=== PATIENT | female | born 1950 | race Caucasian/White ===

== ENCOUNTER → 2017-06-04 | Outpatient (CLI) | payer OTHER, MEDICARE ==
[~2017-06-04] MED LIST: ELESTAT; GLIP2.5T6; OSTEO BI FLEX; SOMA250T; TAMO20TA; THERGRAN; VENL75TA2; VIT B12; VITA100C7; VITA100T; VITAMIN D50000 UNT
== END ==
LOC: M WUC 10:30
PROVIDERS: ATTEND Nurse Practitioner Family
DX: E55.9 Vitamin D deficiency, unspecified (principal)

== ENCOUNTER 2017-11-02 07:31 | Emergency (ER) | payer OTHER, MEDICARE ==
[2017-11-02 08:29] LABS: HEMATOCRIT 29.1 % (36.0-47.0); HEMOGLOBIN 10.5 g/dl (12.0-16.0); MEAN CORPUSCULAR HEMOGLOBIN 37.5 pg (27.0-33.0); MEAN CORPUSCULAR HGB CONC 36.1 g/dl (32.0-36.5); MEAN CORPUSCULAR VOLUME 103.9 fl (80.0-96.0); PLATELET COUNT, AUTOMATED 104 10^3/uL (150-450); RED CELL DISTRIBUTION WIDTH 13.3 % (11.5-14.5); WHITE BLOOD COUNT 3.1 10^3/uL (4.0-10.0)
[2017-11-02 08:31] LABS: POSITIVE MORPH POS FLAG
[2017-11-02 08:33] LABS: ADD MANUAL DIFFER YES; DIFF SLIDE NUMBER 118
[2017-11-02 08:51] LABS: ALBUMIN/GLOBULIN RATIO 1.03 (1.00-1.93); ALKALINE PHOSPHATASE 68 U/L (45-117); ALT/SGPT 22 U/L (12-78); ANION GAP 8 MEQ/L (8-16); AST/SGOT 23 U/L (7-37); BILIRUBIN,DIRECT 0.2 MG/DL (0.0-0.2); BILIRUBIN,TOTAL 0.6 MG/DL (0.2-1.0); BLOOD UREA NITROGEN 27 MG/DL (7-18); CALCIUM LEVEL 9.3 MG/DL (8.8-10.2); CARBON DIOXIDE LEVEL 26 MEQ/L (21-32); CHLORIDE LEVEL 105 MEQ/L (98-107); CPK CREATINE PHOSPHOKINASE 53 U/L (26-192); CREATININE FOR GFR 1.22 MG/DL (0.55-1.30); GLOMERULAR FILTRATION RATE 46.9 (>45); GLUCOSE, FASTING 104 MG/DL (70-100); MB/CK RELATIVE INDEX 1.88 (< OR =4); POTASSIUM SERUM 3.8 MEQ/L (3.5-5.1); SODIUM LEVEL 139 MEQ/L (136-145); TOTAL PROTEIN 7.9 GM/DL (6.4-8.2); TROPONIN I < 0.02 NG/ML (< 0.10)
[2017-11-02 08:55] LABS: ATYPICAL LYMPH 1 % (0-5); BANDS 1 % (< 11); BASOPHILS 6 % (0-4); LYMPHOCYTES 24 % (16-52); MONOCYTES 4 % (0-8); NEUTROPHILS 64 % (35-75); PLATELET ESTIMATE DECREASED (NORMAL)
[2017-11-02 08:58] LABS: ANISOCYTOSIS 2+
[2017-11-02 09:13] LABS: KETONE, URINE AUTO RFX 1+ mg/dL (NEGATIVE); MUCUS, URINE RFX SMALL (NEGATIVE); NITRITE, URINE AUTO RFX NEGATIVE (NEGATIVE); RBC, URINE AUTO RFX 2 /HPF (0-3); SPECIFIC GRAVITY UR AUTO RFX 1.021 (1.002-1.035); SQUAM EPITHELIAL CELL UR AURFX 0 /HPF (0-6); WBC, URINE AUTO RFX 4 /HPF (0-3)
[2017-11-02 09:21] LABS: LEUKOCYTE ESTERASE UR AUTO RFX TRACE (NEGATIVE)
[2017-11-02] MEDS: NS 1,000 ML IV (09:22)
== END 2017-11-02 11:47 | disposition home or self-care (01) ==
LOC: M ED 07:31
DX: E86.0 Dehydration (principal); F03.90 Unspecified dementia, unspecified severity, without behavioral disturbance, psychotic disturbance, mood disturbance, and anxiety; D61.810 Antineoplastic chemotherapy induced pancytopenia; R90.81 Abnormal echoencephalogram; E11.9 Type 2 diabetes mellitus without complications; F33.9 Major depressive disorder, recurrent, unspecified; K21.9 Gastro-esophageal reflux disease without esophagitis; G47.33 Obstructive sleep apnea (adult) (pediatric); Z85.3 Personal history of malignant neoplasm of breast; Z92.3 Personal history of irradiation; Z92.21 Personal history of antineoplastic chemotherapy; Z79.899 Other long term (current) drug therapy; Z79.84 Long term (current) use of oral hypoglycemic drugs; Z91.048 Other nonmedicinal substance allergy status
CPT/HCPCS: 71046

== ENCOUNTER → 2017-12-04 | Outpatient (CLI) | payer OTHER, MEDICARE ==
[2017-12-04 12:01] LABS: HEMATOCRIT 29.1 % (36.0-47.0); HEMOGLOBIN 10.2 g/dl (12.0-15.5); MEAN CORPUSCULAR HGB CONC 35.1 g/dl (32.0-36.5); MEAN CORPUSCULAR VOLUME 105.4 fl (80.0-96.0); RED BLOOD COUNT 2.76 10^6/uL (4.00-5.40); RED CELL DISTRIBUTION WIDTH 13.6 % (11.5-14.5); WHITE BLOOD COUNT 3.1 10^3/uL (4.0-10.0)
[2017-12-04 12:06] LABS: ADD MANUAL DIFFER YES; DIFF SLIDE NUMBER 189; PLATELET COUNT, AUTOMATED 91 10^3/uL (150-450)
[2017-12-04 12:08] LABS: PLATELET F 95
[2017-12-04 12:16] LABS: TOTAL 25(OH) VITAMIN D 96.6 NG/ML (30.0-100.0)
[2017-12-04 12:17] LABS: ALBUMIN 3.9 GM/DL (3.2-5.2); ALBUMIN/GLOBULIN RATIO 1.11 (1.00-1.93); ALKALINE PHOSPHATASE 69 U/L (45-117); ALT/SGPT 20 U/L (12-78); ANION GAP 5 MEQ/L (8-16); AST/SGOT 18 U/L (7-37); BILIRUBIN,TOTAL 0.7 MG/DL (0.2-1.0); BLOOD UREA NITROGEN 20 MG/DL (7-18); CALCIUM LEVEL 9.1 MG/DL (8.8-10.2); CARBON DIOXIDE LEVEL 29 MEQ/L (21-32); CHLORIDE LEVEL 107 MEQ/L (98-107); CHOLESTEROL LEVEL 188 MG/DL (<200); CHOLESTEROL RISK RATIO 2.764 (<5); CREATININE FOR GFR 1.21 MG/DL (0.55-1.30); GLOMERULAR FILTRATION RATE 47.4 (>45); GLUCOSE, FASTING 153 MG/DL (70-100); HDL CHOLESTEROL 68 MG/DL (>40); LDL CHOLESTEROL 95.8 MG/DL (<100); NON-HDL-C 120 MG/DL; POTASSIUM SERUM 4.5 MEQ/L (3.5-5.1); SODIUM LEVEL 141 MEQ/L (136-145); TOTAL PROTEIN 7.4 GM/DL (6.4-8.2); TRIGLYCERIDES LEVEL 121 MG/DL (<150)
[2017-12-04 13:10] LABS: ANISOCYTOSIS 1+; ATYPICAL LYMPH 3 % (0-5); BASOPHILS 1 % (0-4); EOSINOPHILS 6 % (0-5); LYMPHOCYTES 44 % (16-52); MONOCYTES 2 % (0-8); NEUTROPHILS 44 % (35-75); PLATELET ESTIMATE DECREASED (NORMAL); POIKILOCYTOSIS 1+
== END ==
LOC: M WUC 09:41
DX: K21.9 Gastro-esophageal reflux disease without esophagitis (principal); E55.9 Vitamin D deficiency, unspecified; E78.4 Other hyperlipidemia
CPT/HCPCS: 80053

== ENCOUNTER → 2018-06-17 | Outpatient (CLI) | payer OTHER, MEDICARE ==
[2018-06-17 13:07] LABS: ANION GAP 8 MEQ/L (8-16); BLOOD UREA NITROGEN 26 MG/DL (7-18); CARBON DIOXIDE LEVEL 28 MEQ/L (21-32); CHLORIDE LEVEL 104 MEQ/L (98-107); CREATININE FOR GFR 1.43 MG/DL (0.55-1.30); GLUCOSE, FASTING 111 MG/DL (70-100); POTASSIUM SERUM 3.9 MEQ/L (3.5-5.1); SODIUM LEVEL 140 MEQ/L (136-145)
== END ==
LOC: M WUC 09:45
DX: E11.65 Type 2 diabetes mellitus with hyperglycemia (principal); Z79.01 Long term (current) use of anticoagulants
CPT/HCPCS: 80048

== ENCOUNTER → 2018-06-27 | Outpatient (CLI) | payer OTHER, MEDICARE ==
[2018-06-27 09:19] LABS: BASO # 0.1 10^3/uL (0.0-0.2); BASO % 1.6 % (0.0-1.0); EOS # 0.1 10^3/uL (0.0-0.50); EOS % 1.9 % (0.0-3.0); HEMATOCRIT 27.5 % (36.0-47.0); HEMOGLOBIN 9.5 g/dl (12.0-15.5); LYMPH # 1.6 10^3/uL (1.5-4.5); LYMPH % 51.9 % (24.0-44.0); MEAN CORPUSCULAR HEMOGLOBIN 37.5 pg (27.0-33.0); MEAN CORPUSCULAR HGB CONC 34.5 g/dl (32.0-36.5); MEAN CORPUSCULAR VOLUME 108.7 fl (80.0-96.0); MONO # 0.4 10^3/uL (0.0-0.8); MONO % 13.1 % (0.0-5.0); NEUTROPHILS % 31.5 % (36.0-66.0); RED BLOOD COUNT 2.53 10^6/uL (4.00-5.40); RED CELL DISTRIBUTION WIDTH 14.3 % (11.5-14.5); WHITE BLOOD COUNT 3.1 10^3/uL (4.0-10.0)
[2018-06-27 10:07] LABS: PLATELET COUNT, AUTOMATED 93 10^3/uL (150-450); POSITIVE DIFF POS FLAG
[2018-06-27 10:08] LABS: IMMATURE PLATELET FRACTION % 4.4 % (0.0-9.6)
[2018-06-27 10:35] LABS: MALB URINE SIEMENS 35.7 MG/L; MAU/CREAT RATIO 17.7 MCG/MG (0.0-30.0)
[2018-06-27 15:51] LABS: CHOLESTEROL LEVEL 161 MG/DL (<200); CHOLESTEROL RISK RATIO 2.333 (<5); HDL CHOLESTEROL 69 MG/DL (>40); LDL CHOLESTEROL 71 MG/DL (<100); NON-HDL-C 92 MG/DL; TRIGLYCERIDES LEVEL 104 MG/DL (<150)
[2018-06-27 15:59] LABS: TOTAL 25(OH) VITAMIN D 41.3 NG/ML (30.0-100.0); VITAMIN B12 LEVEL 238 PG/ML (247-911)
[2018-06-28 11:39] LABS: LDL DIRECT 74 mg/dL (0-99)
== END ==
LOC: M WUC 08:09
DX: C50.912 Malignant neoplasm of unspecified site of left female breast (principal); E11.65 Type 2 diabetes mellitus with hyperglycemia; E55.9 Vitamin D deficiency, unspecified; E78.5 Hyperlipidemia, unspecified
CPT/HCPCS: 82607

== ENCOUNTER → 2018-07-03 | Outpatient (CLI) | payer OTHER, MEDICARE ==
[2018-07-03 18:13] LABS: VITAMIN B12 LEVEL 319 PG/ML (247-911)
== END ==
LOC: M WUC 11:04
DX: D75.9 Disease of blood and blood-forming organs, unspecified (principal)
CPT/HCPCS: 82607

== ENCOUNTER → 2018-07-03 | Outpatient (CLI) | payer OTHER, MEDICARE ==
[2018-07-03 18:15] LABS: BASO # 0.1 10^3/uL (0.0-0.2); BASO % 2.4 % (0.0-1.0); EOS # 0.1 10^3/uL (0.0-0.50); EOS % 2.1 % (0.0-3.0); HEMATOCRIT 28.9 % (36.0-47.0); IMMATURE GRANULOCYTE % 0.3 % (0-3.0); LYMPH # 1.3 10^3/uL (1.5-4.5); LYMPH % 38.7 % (24.0-44.0); MEAN CORPUSCULAR HEMOGLOBIN 37.2 pg (27.0-33.0); MEAN CORPUSCULAR HGB CONC 34.6 g/dl (32.0-36.5); MEAN CORPUSCULAR VOLUME 107.4 fl (80.0-96.0); MONO # 0.4 10^3/uL (0.0-0.8); MONO % 12.5 % (0.0-5.0); NEUTROPHILS # 1.5 10^3/uL (1.8-7.7); PLATELET COUNT, AUTOMATED 165 10^3/uL (150-450); RED BLOOD COUNT 2.69 10^6/uL (4.00-5.40); RED CELL DISTRIBUTION WIDTH 13.7 % (11.5-14.5); WHITE BLOOD COUNT 3.4 10^3/uL (4.0-10.0)
== END ==
LOC: M WUC 11:08
DX: C50.912 Malignant neoplasm of unspecified site of left female breast (principal)

== ENCOUNTER → 2018-10-01 | Outpatient (CLI) | payer OTHER, MEDICARE ==
[~2018-10-01] MED LIST changes: +DONETAB6 PO; +GLYB5TA PO; +IBRA125C PO; +JANU100T PO; +MEMA1TAB2 PO; +METF10004 PO; +SANT250O8; +SIMV20TA2 PO; +VENL75CA47 PO
[2018-10-01 12:57] LABS: BASO # 0.1 10^3/uL (0.0-0.2); BASO % 1.4 % (0.0-1.0); EOS # 0.1 10^3/uL (0.0-0.50); EOS % 3.1 % (0.0-3.0); HEMATOCRIT 28.2 % (36.0-47.0); HEMOGLOBIN 9.7 g/dl (12.0-15.5); LYMPH # 1.5 10^3/uL (1.5-4.5); LYMPH % 43.1 % (24.0-44.0); MEAN CORPUSCULAR HEMOGLOBIN 36.2 pg (27.0-33.0); MEAN CORPUSCULAR HGB CONC 34.4 g/dl (32.0-36.5); MEAN CORPUSCULAR VOLUME 105.2 fl (80.0-96.0); MONO # 0.6 10^3/uL (0.0-0.8); MONO % 15.6 % (0.0-5.0); NEUTROPHILS # 1.3 10^3/uL (1.8-7.7); NEUTROPHILS % 36.5 % (36.0-66.0); PLATELET COUNT, AUTOMATED 113 10^3/uL (150-450); RED BLOOD COUNT 2.68 10^6/uL (4.00-5.40); WHITE BLOOD COUNT 3.5 10^3/uL (4.0-10.0)
== END ==
LOC: M WUC 09:07
PROVIDERS: ATTEND Physician Assistant
DX: C50.919 Malignant neoplasm of unspecified site of unspecified female breast (principal); C77.1 Secondary and unspecified malignant neoplasm of intrathoracic lymph nodes

== ENCOUNTER → 2018-12-03 | Outpatient (CLI) | payer OTHER, MEDICARE ==
[~2018-12-03] MED LIST changes: -TAMO20TA; +TAMO20TA44
[2018-12-03 08:55] LABS: BASO % 1.1 % (0.0-1.0); EOS # 0.1 10^3/uL (0.0-0.50); EOS % 2.8 % (0.0-3.0); HEMOGLOBIN 9.7 g/dl (12.0-15.5); LYMPH % 54.7 % (24.0-44.0); MEAN CORPUSCULAR HEMOGLOBIN 36.6 pg (27.0-33.0); MEAN CORPUSCULAR HGB CONC 34.6 g/dl (32.0-36.5); MEAN CORPUSCULAR VOLUME 105.7 fl (80.0-96.0); MONO # 0.3 10^3/uL (0.0-0.8); MONO % 9.2 % (0.0-5.0); NEUTROPHILS # 1.1 10^3/uL (1.8-7.7); NEUTROPHILS % 31.6 % (36.0-66.0); PLATELET COUNT, AUTOMATED 165 10^3/uL (150-450); RED BLOOD COUNT 2.65 10^6/uL (4.00-5.40); WHITE BLOOD COUNT 3.6 10^3/uL (4.0-10.0)
== END ==
LOC: M WUC 08:15
PROVIDERS: ATTEND Physician Assistant
DX: C50.919 Malignant neoplasm of unspecified site of unspecified female breast (principal); C77.1 Secondary and unspecified malignant neoplasm of intrathoracic lymph nodes

== ENCOUNTER → 2018-12-11 | Outpatient (CLI) | payer OTHER, MEDICARE ==
[2018-12-11 10:39] LABS: ALBUMIN 3.9 GM/DL (3.2-5.2); BILIRUBIN,TOTAL 0.5 MG/DL (0.2-1.0); CALCIUM LEVEL 9.1 MG/DL (8.8-10.2); CHOLESTEROL RISK RATIO 2.161 (<5); CREATININE FOR GFR 1.56 MG/DL (0.55-1.30); GLOMERULAR FILTRATION RATE 35.2 (>45); POTASSIUM SERUM 4.4 MEQ/L (3.5-5.1); TOTAL PROTEIN 7.5 GM/DL (6.4-8.2)
[2018-12-11 10:42] LABS: TOTAL 25(OH) VITAMIN D 47.3 NG/ML (30.0-100.0)
== END ==
LOC: M WUC 08:13
PROVIDERS: ATTEND Nurse Practitioner Family
DX: E55.9 Vitamin D deficiency, unspecified (principal); E78.49 Other hyperlipidemia

== ENCOUNTER → 2019-02-11 | Outpatient (CLI) | payer MEDICARE, OTHER ==
[2019-02-11 08:58] LABS: BASO # 0.1 10^3/uL (0.0-0.2); BASO % 1.9 % (0.0-1.0); EOS # 0.1 10^3/uL (0.0-0.50); EOS % 3.1 % (0.0-3.0); HEMATOCRIT 27.6 % (36.0-47.0); HEMOGLOBIN 9.7 g/dl (12.0-15.5); LYMPH # 1.8 10^3/uL (1.5-4.5); LYMPH % 41.9 % (24.0-44.0); MEAN CORPUSCULAR HEMOGLOBIN 37.2 pg (27.0-33.0); MEAN CORPUSCULAR HGB CONC 35.1 g/dl (32.0-36.5); MEAN CORPUSCULAR VOLUME 105.7 fl (80.0-96.0); MONO # 0.6 10^3/uL (0.0-0.8); MONO % 13.3 % (0.0-5.0); NEUTROPHILS # 1.7 10^3/uL (1.8-7.7); NEUTROPHILS % 39.6 % (36.0-66.0); PLATELET COUNT, AUTOMATED 209 10^3/uL (150-450); RED BLOOD COUNT 2.61 10^6/uL (4.00-5.40); WHITE BLOOD COUNT 4.2 10^3/uL (4.0-10.0)
== END ==
LOC: M WUC 08:19
PROVIDERS: ATTEND Internal Medicine Medical Oncology
DX: C50.919 Malignant neoplasm of unspecified site of unspecified female breast (principal); C77.1 Secondary and unspecified malignant neoplasm of intrathoracic lymph nodes

== ENCOUNTER → 2019-04-15 | Outpatient (CLI) | payer MEDICARE, OTHER ==
[2019-04-15 09:09] LABS: BASO # 0.1 10^3/uL (0.0-0.2); BASO % 1.8 % (0.0-1.0); EOS # 0.1 10^3/uL (0.0-0.50); EOS % 2.8 % (0.0-3.0); HEMATOCRIT 27.7 % (36.0-47.0); HEMOGLOBIN 9.5 g/dl (12.0-15.5); LYMPH # 1.5 10^3/uL (1.5-4.5); LYMPH % 37.1 % (24.0-44.0); MEAN CORPUSCULAR HEMOGLOBIN 37.1 pg (27.0-33.0); MEAN CORPUSCULAR HGB CONC 34.3 g/dl (32.0-36.5); MEAN CORPUSCULAR VOLUME 108.2 fl (80.0-96.0); MONO # 0.5 10^3/uL (0.0-0.8); MONO % 12.3 % (0.0-5.0); NEUTROPHILS # 1.8 10^3/uL (1.8-7.7); NEUTROPHILS % 45.5 % (36.0-66.0); PLATELET COUNT, AUTOMATED 189 10^3/uL (150-450); RED BLOOD COUNT 2.56 10^6/uL (4.00-5.40); WHITE BLOOD COUNT 3.9 10^3/uL (4.0-10.0)
== END ==
LOC: M WUC 08:18
PROVIDERS: ATTEND Internal Medicine Medical Oncology
DX: C50.919 Malignant neoplasm of unspecified site of unspecified female breast (principal); C77.1 Secondary and unspecified malignant neoplasm of intrathoracic lymph nodes

== ENCOUNTER → 2019-06-20 | Outpatient (CLI) | payer MEDICARE, OTHER ==
[2019-06-20 10:33] LABS: BILIRUBIN,TOTAL 0.3 MG/DL (0.2-1.0); CHOLESTEROL RISK RATIO 2.142 (<5); CREATININE FOR GFR 1.33 MG/DL (0.55-1.30); FREE T4 0.91 NG/DL (0.76-1.46); GLOMERULAR FILTRATION RATE 42.2 (>45); POTASSIUM SERUM 3.9 MEQ/L (3.5-5.1); PTH INTACT 42.9 PG/ML (18.5-88.0); THYROID STIMULATING HORMONE 2.66 uIU/ML (0.358-3.740); TOTAL 25(OH) VITAMIN D 30.9 NG/ML (30.0-100.0); TOTAL PROTEIN 7.4 GM/DL (6.4-8.2)
[2019-06-20 11:12] LABS: HEMOGLOBIN A1c 4.9 %
== END ==
LOC: M WUC 08:33
PROVIDERS: ATTEND Physician Assistant Medical
DX: E55.9 Vitamin D deficiency, unspecified (principal); E11.9 Type 2 diabetes mellitus without complications; E78.2 Mixed hyperlipidemia; Z79.899 Other long term (current) drug therapy

== ENCOUNTER → 2019-10-09 | Outpatient (REF) | payer OTHER ==
[~2019-10-09] MED LIST changes: +MEMA10TA19 PO; -MEMA1TAB2 PO; -SIMV20TA2 PO; +SIMV20TA22 PO
[2019-10-09 17:51] LABS: CALCIUM LEVEL 9.3 MG/DL (8.8-10.2); CREATININE FOR GFR 1.13 MG/DL (0.55-1.30); POTASSIUM SERUM 3.9 MEQ/L (3.5-5.1)
== END ==
LOC: M SFHCPLAZ 15:05
PROVIDERS: ATTEND Physician Assistant Medical
DX: E11.9 Type 2 diabetes mellitus without complications (principal)

== ENCOUNTER → 2019-12-05 | Outpatient (CLI) | payer OTHER ==
[2019-12-05 17:09] LABS: BASO # 0.1 10^3/uL (0.0-0.2); BASO % 2.4 % (0.0-1.0); EOS # 0.1 10^3/uL (0.0-0.5); EOS % 3.2 % (0.0-3.0); HEMATOCRIT 30.1 % (36.0-47.0); HEMOGLOBIN 10.6 g/dl (12.0-15.5); LYMPH # 1.4 10^3/uL (1.5-5.0); LYMPH % 38.9 % (24.0-44.0); MEAN CORPUSCULAR HEMOGLOBIN 36.7 pg (27.0-33.0); MEAN CORPUSCULAR HGB CONC 35.2 g/dl (32.0-36.5); MEAN CORPUSCULAR VOLUME 104.2 fl (80.0-96.0); MONO # 0.5 10^3/uL (0.0-0.8); MONO % 12.7 % (0.0-5.0); NEUTROPHILS # 1.6 10^3/uL (1.5-8.5); NEUTROPHILS % 42.5 % (36.0-66.0); PLATELET COUNT, AUTOMATED 137 10^3/uL (150-450); RED BLOOD COUNT 2.89 10^6/uL (4.00-5.40); WHITE BLOOD COUNT 3.7 10^3/uL (4.0-10.0)
[2019-12-05 17:24] LABS: BILIRUBIN,TOTAL 0.3 MG/DL (0.2-1.0); CALCIUM LEVEL 9.5 MG/DL (8.8-10.2); CREATININE FOR GFR 1.18 MG/DL (0.55-1.30); GLOMERULAR FILTRATION RATE 48.5 (>45); POTASSIUM SERUM 4.1 MEQ/L (3.5-5.1); TOTAL PROTEIN 7.2 GM/DL (6.4-8.2)
[2019-12-05 18:11] LABS: CA15-3 ANTIGEN 38.2 U/ML (<32.4)
== END ==
LOC: M WUC 12:22
PROVIDERS: ATTEND Internal Medicine Medical Oncology
DX: C50.919 Malignant neoplasm of unspecified site of unspecified female breast (principal); Z17.0 Estrogen receptor positive status [ER+]

== ENCOUNTER → 2020-01-02 | Outpatient (CLI) | payer OTHER ==
[2020-01-02 13:26] LABS: BASO # 0.1 10^3/uL (0.0-0.2); BASO % 1.6 % (0.0-1.0); EOS # 0.1 10^3/uL (0.0-0.5); EOS % 3.6 % (0.0-3.0); HEMATOCRIT 29.3 % (36.0-47.0); HEMOGLOBIN 10.2 g/dl (12.0-15.5); LYMPH # 1.2 10^3/uL (1.5-5.0); LYMPH % 40.7 % (24.0-44.0); MEAN CORPUSCULAR HEMOGLOBIN 35.7 pg (27.0-33.0); MEAN CORPUSCULAR HGB CONC 34.8 g/dl (32.0-36.5); MEAN CORPUSCULAR VOLUME 102.4 fl (80.0-96.0); MONO # 0.2 10^3/uL (0.0-0.8); MONO % 6.2 % (0.0-5.0); NEUTROPHILS # 1.5 10^3/uL (1.5-8.5); NEUTROPHILS % 47.6 % (36.0-66.0); RED BLOOD COUNT 2.86 10^6/uL (4.00-5.40); WHITE BLOOD COUNT 3.1 10^3/uL (4.0-10.0)
[2020-01-02 13:44] LABS: PLATELET COUNT, AUTOMATED 98 10^3/uL (150-450)
[2020-01-02 13:46] LABS: ALBUMIN 3.9 GM/DL (3.2-5.2); BILIRUBIN,TOTAL 0.2 MG/DL (0.2-1.0); CALCIUM LEVEL 9.3 MG/DL (8.8-10.2); CREATININE FOR GFR 1.17 MG/DL (0.55-1.30); POTASSIUM SERUM 3.8 MEQ/L (3.5-5.1); TOTAL PROTEIN 7.1 GM/DL (6.4-8.2)
[2020-01-02 14:34] LABS: CA15-3 ANTIGEN 32.8 U/ML (<32.4)
== END ==
LOC: M WUC 11:35
PROVIDERS: ATTEND Internal Medicine Medical Oncology
DX: C50.919 Malignant neoplasm of unspecified site of unspecified female breast (principal)

== ENCOUNTER → 2020-01-29 | Outpatient (CLI) | payer OTHER ==
[2020-01-29 15:56] LABS: HEMATOCRIT 29.7 % (36.0-47.0); HEMOGLOBIN 10.3 g/dl (12.0-15.5); MEAN CORPUSCULAR HEMOGLOBIN 35.5 pg (27.0-33.0); MEAN CORPUSCULAR HGB CONC 34.7 g/dl (32.0-36.5); MEAN CORPUSCULAR VOLUME 102.4 fl (80.0-96.0); PLATELET COUNT, AUTOMATED 102 10^3/uL (150-450); WHITE BLOOD COUNT 3.9 10^3/uL (4.0-10.0)
[2020-01-29 16:06] LABS: ANISOCYTOSIS 1+; BASOPHILS 1 % (0-1); EOSINOPHILS 4 % (0-3); LYMPHOCYTES 40 % (16-44); MONOCYTES 6 % (0-5); NEUTROPHILS 49 % (28-66); PLATELET ESTIMATE DECREASED (NORMAL); POIKILOCYTOSIS 1+
[2020-01-29 16:07] LABS: POLYCHROMASIA 1+
== END ==
LOC: M WUC 13:04
PROVIDERS: ATTEND Internal Medicine Medical Oncology
DX: C50.919 Malignant neoplasm of unspecified site of unspecified female breast (principal)

== ENCOUNTER → 2020-02-03 | Outpatient (REF) | payer OTHER ==
[~2020-02-03] MED LIST changes: -GLYB5TA PO; +GLYB5TAB6 PO
[2020-02-03 15:14] LABS: HEMATOCRIT 31.8 % (36.0-47.0); MEAN CORPUSCULAR HEMOGLOBIN 35.6 pg (27.0-33.0); MEAN CORPUSCULAR HGB CONC 34.6 g/dl (32.0-36.5); MEAN CORPUSCULAR VOLUME 102.9 fl (80.0-96.0); PLATELET COUNT, AUTOMATED 100 10^3/uL (150-450); RED BLOOD COUNT 3.09 10^6/uL (4.00-5.40)
[2020-02-03 15:31] LABS: HEMOGLOBIN A1c 5.1 %
[2020-02-03 15:42] LABS: EOSINOPHILS 4 % (0-3); LYMPHOCYTES 50 % (16-44); MONOCYTES 2 % (0-5); NEUTROPHILS 43 % (28-66)
[2020-02-03 15:43] LABS: ALBUMIN 3.9 GM/DL (3.2-5.2); BILIRUBIN,TOTAL 0.4 MG/DL (0.2-1.0); CALCIUM LEVEL 9.4 MG/DL (8.8-10.2); CHOLESTEROL RISK RATIO 2.088 (<5); CREATININE FOR GFR 1.37 MG/DL (0.55-1.30); FREE T4 0.97 NG/DL (0.76-1.46); GLOMERULAR FILTRATION RATE 40.8 (>45); PLATELET ESTIMATE DECREASED (NORMAL); THYROID STIMULATING HORMONE 0.983 uIU/ML (0.358-3.740); TOTAL PROTEIN 7.5 GM/DL (6.4-8.2)
[2020-02-03 15:44] LABS: TOTAL 25(OH) VITAMIN D 129.4 NG/ML (30.0-100.0)
[2020-02-03 15:45] LABS: PTH INTACT 22.9 PG/ML (18.5-88.0)
== END ==
LOC: M PLALAB 11:08
PROVIDERS: ATTEND Physician Assistant Medical
DX: D64.9 Anemia, unspecified (principal); E78.2 Mixed hyperlipidemia; F32.9 Major depressive disorder, single episode, unspecified; E11.9 Type 2 diabetes mellitus without complications; E55.9 Vitamin D deficiency, unspecified

== ENCOUNTER → 2020-04-12 | Outpatient (CLI) | payer OTHER ==
[~2020-04-12] MED LIST changes: +GLYB5TA PO; -GLYB5TAB6 PO
[2020-04-12 11:43] LABS: HEMOGLOBIN A1c 5.4 %
== END ==
LOC: M WUC 09:31
PROVIDERS: ATTEND Physician Assistant
DX: E11.65 Type 2 diabetes mellitus with hyperglycemia (principal)

== ENCOUNTER → 2020-04-12 | Outpatient (CLI) | payer OTHER ==
[2020-04-12 11:23] LABS: ALBUMIN 3.8 GM/DL (3.2-5.2); BILIRUBIN,TOTAL 0.4 MG/DL (0.2-1.0); CALCIUM LEVEL 9.5 MG/DL (8.8-10.2); CREATININE FOR GFR 1.24 MG/DL (0.55-1.30); GLOMERULAR FILTRATION RATE 45.7 (>45); POTASSIUM SERUM 4.3 MEQ/L (3.5-5.1); TOTAL PROTEIN 7.3 GM/DL (6.4-8.2)
== END ==
LOC: M WUC 09:35
PROVIDERS: ATTEND Internal Medicine Medical Oncology
DX: C50.919 Malignant neoplasm of unspecified site of unspecified female breast (principal); E11.65 Type 2 diabetes mellitus with hyperglycemia

== ENCOUNTER → 2020-05-14 | Outpatient (CLI) | payer OTHER ==
[2020-05-14 12:46] LABS: BASO % 1.4 % (0.0-1.0); EOS # 0.1 10^3/uL (0.0-0.5); EOS % 3.5 % (0.0-3.0); HEMOGLOBIN 10.3 g/dl (12.0-15.5); LYMPH # 1.1 10^3/uL (1.5-5.0); LYMPH % 37.9 % (24.0-44.0); MEAN CORPUSCULAR HEMOGLOBIN 35.2 pg (27.0-33.0); MEAN CORPUSCULAR HGB CONC 34.3 g/dl (32.0-36.5); MEAN CORPUSCULAR VOLUME 102.4 fl (80.0-96.0); MONO # 0.2 10^3/uL (0.0-0.8); NEUTROPHILS # 1.4 10^3/uL (1.5-8.5); NEUTROPHILS % 50.2 % (36.0-66.0); PLATELET COUNT, AUTOMATED 106 10^3/uL (150-450); RED BLOOD COUNT 2.93 10^6/uL (4.00-5.40); WHITE BLOOD COUNT 2.9 10^3/uL (4.0-10.0)
== END ==
LOC: M WUC 10:55
PROVIDERS: ATTEND Internal Medicine Medical Oncology
DX: C50.919 Malignant neoplasm of unspecified site of unspecified female breast (principal)

== ENCOUNTER → 2020-06-10 | Outpatient (CLI) | payer OTHER | LOC: M WUC 10:31 | PROVIDERS: ATTEND Internal Medicine Medical Oncology | DX: C50.919 Malignant neoplasm of unspecified site of unspecified female breast (principal) ==

== ENCOUNTER → 2020-07-06 | Outpatient (CLI) | payer OTHER | LOC: M WUC 08:31 | PROVIDERS: ATTEND Internal Medicine Medical Oncology | DX: C50.919 Malignant neoplasm of unspecified site of unspecified female breast (principal) ==

== ENCOUNTER → 2020-07-16 | Outpatient (REF) | payer OTHER ==
[2020-07-16 15:57] LABS: BASO # 0.1 10^3/uL (0.0-0.2); BASO % 1.6 % (0.0-1.0); EOS # 0.1 10^3/uL (0.0-0.5); EOS % 2.1 % (0.0-3.0); HEMATOCRIT 31.3 % (36.0-47.0); HEMOGLOBIN 10.6 g/dl (12.0-15.5); LYMPH # 1.5 10^3/uL (1.5-5.0); LYMPH % 36.2 % (24.0-44.0); MEAN CORPUSCULAR HEMOGLOBIN 34.8 pg (27.0-33.0); MEAN CORPUSCULAR HGB CONC 33.9 g/dl (32.0-36.5); MEAN CORPUSCULAR VOLUME 102.6 fl (80.0-96.0); MONO # 0.5 10^3/uL (0.0-0.8); MONO % 12.2 % (0.0-5.0); NEUTROPHILS % 47.7 % (36.0-66.0); PLATELET COUNT, AUTOMATED 193 10^3/uL (150-450); RED BLOOD COUNT 3.05 10^6/uL (4.00-5.40); WHITE BLOOD COUNT 4.3 10^3/uL (4.0-10.0)
[2020-07-16 16:58] LABS: ALBUMIN 3.9 GM/DL (3.2-5.2); BILIRUBIN,TOTAL 0.3 MG/DL (0.2-1.0); CALCIUM LEVEL 9.8 MG/DL (8.8-10.2); CREATININE FOR GFR 1.14 MG/DL (0.55-1.30); GLOMERULAR FILTRATION RATE 50.3 (>45); POTASSIUM SERUM 4.5 MEQ/L (3.5-5.1); TOTAL PROTEIN 7.3 GM/DL (6.4-8.2)
== END ==
LOC: M WUC 15:33
DX: C50.919 Malignant neoplasm of unspecified site of unspecified female breast (principal)

== ENCOUNTER → 2020-08-02 | Outpatient (CLI) | payer OTHER ==
[2020-08-02 13:41] LABS: HEMATOCRIT 32.3 % (36.0-47.0); MEAN CORPUSCULAR HEMOGLOBIN 35.3 pg (27.0-33.0); MEAN CORPUSCULAR HGB CONC 34.1 g/dl (32.0-36.5); MEAN CORPUSCULAR VOLUME 103.5 fl (80.0-96.0); PLATELET COUNT, AUTOMATED 208 10^3/uL (150-450); RED BLOOD COUNT 3.12 10^6/uL (4.00-5.40); WHITE BLOOD COUNT 3.4 10^3/uL (4.0-10.0)
[2020-08-02 14:05] LABS: ALBUMIN 3.9 GM/DL (3.2-5.2); BILIRUBIN,TOTAL 0.3 MG/DL (0.2-1.0); CALCIUM LEVEL 9.6 MG/DL (8.8-10.2); CREATININE FOR GFR 1.33 MG/DL (0.55-1.30); GLOMERULAR FILTRATION RATE 42.1 (>45); POTASSIUM SERUM 3.7 MEQ/L (3.5-5.1); TOTAL PROTEIN 7.4 GM/DL (6.4-8.2)
[2020-08-02 14:07] LABS: BASOPHILS 1 % (0-1); EOSINOPHILS 3 % (0-3); LYMPHOCYTES 19 % (16-44); MONOCYTES 1 % (0-5); NEUTROPHILS 76 % (28-66)
[2020-08-02 14:08] LABS: PLATELET ESTIMATE NORMAL (NORMAL)
== END ==
LOC: M WUC 11:29
PROVIDERS: ATTEND Nurse Practitioner Family
DX: C50.919 Malignant neoplasm of unspecified site of unspecified female breast (principal)

== ENCOUNTER → 2020-08-05 | Outpatient (REF) | payer OTHER ==
[2020-08-05 14:32] LABS: HEMATOCRIT 33.3 % (36.0-47.0); HEMOGLOBIN 11.2 g/dl (12.0-15.5); MEAN CORPUSCULAR HEMOGLOBIN 34.7 pg (27.0-33.0); MEAN CORPUSCULAR HGB CONC 33.6 g/dl (32.0-36.5); MEAN CORPUSCULAR VOLUME 103.1 fl (80.0-96.0); PLATELET COUNT, AUTOMATED 157 10^3/uL (150-450); RED BLOOD COUNT 3.23 10^6/uL (4.00-5.40); WHITE BLOOD COUNT 3.9 10^3/uL (4.0-10.0)
[2020-08-05 15:02] LABS: BASOPHILS 4 % (0-1); EOSINOPHILS 8 % (0-3); LYMPHOCYTES 30 % (16-44); MONOCYTES 4 % (0-5); NEUTROPHILS 54 % (28-66)
[2020-08-05 15:04] LABS: PLATELET ESTIMATE NORMAL (NORMAL)
[2020-08-05 15:08] LABS: MALB URINE SIEMENS 74.3 MG/L; MAU/CREAT RATIO 42.9 MCG/MG (0.0-30.0)
[2020-08-05 15:32] LABS: HEMOGLOBIN A1c 5.2 %
[2020-08-05 15:48] LABS: ALT/SGPT 16 U/L (12-78); BILIRUBIN,TOTAL 0.2 MG/DL (0.2-1.0); BLOOD UREA NITROGEN 22 MG/DL (7-18); CALCIUM LEVEL 10.1 MG/DL (8.8-10.2); CARBON DIOXIDE LEVEL 33 MEQ/L (21-32); CHLORIDE LEVEL 106 MEQ/L (98-107); CREATININE FOR GFR 1.46 MG/DL (0.55-1.30); FREE T4 1.05 NG/DL (0.76-1.46); GLOMERULAR FILTRATION RATE 37.8 (>45); GLUCOSE, FASTING 96 MG/DL (70-100); POTASSIUM SERUM 4.5 MEQ/L (3.5-5.1); SODIUM LEVEL 142 MEQ/L (136-145); TOTAL 25(OH) VITAMIN D 33.8 NG/ML (30.0-100.0); TOTAL PROTEIN 7.4 GM/DL (6.4-8.2); VITAMIN B12 LEVEL > 2000 PG/ML (247-911)
== END ==
LOC: M SFHCPLAZ 09:59
PROVIDERS: ATTEND Physician Assistant Medical
DX: D64.9 Anemia, unspecified (principal); E11.9 Type 2 diabetes mellitus without complications; F41.9 Anxiety disorder, unspecified; E55.9 Vitamin D deficiency, unspecified

== ENCOUNTER → 2020-09-06 | Outpatient (CLI) | payer OTHER, MEDICARE ==
[~2020-09-06] MED LIST changes: -GLYB5TA PO; +GLYB5TAB6 PO
[2020-09-06 12:42] LABS: HEMATOCRIT 33.3 % (36.0-47.0); HEMOGLOBIN 11.1 g/dl (12.0-15.5); MEAN CORPUSCULAR HGB CONC 33.3 g/dl (32.0-36.5); PLATELET COUNT, AUTOMATED 129 10^3/uL (150-450); RED BLOOD COUNT 3.17 10^6/uL (4.00-5.40); WHITE BLOOD COUNT 3.1 10^3/uL (4.0-10.0)
[2020-09-06 13:12] LABS: ALBUMIN 3.9 GM/DL (3.2-5.2); BASOPHILS 4 % (0-1); BILIRUBIN,TOTAL 0.3 MG/DL (0.2-1.0); CALCIUM LEVEL 9.6 MG/DL (8.8-10.2); CREATININE FOR GFR 1.53 MG/DL (0.55-1.30); EOSINOPHILS 1 % (0-3); GLOMERULAR FILTRATION RATE 35.8 (>45); LYMPHOCYTES 45 % (16-44); MONOCYTES 4 % (0-5); NEUTROPHILS 45 % (28-66); POTASSIUM SERUM 4.1 MEQ/L (3.5-5.1); TOTAL PROTEIN 7.1 GM/DL (6.4-8.2)
[2020-09-06 13:13] LABS: PLATELET ESTIMATE DECREASED (NORMAL)
[2020-09-06 13:54] LABS: CA15-3 ANTIGEN 61.5 U/ML (<32.4)
== END ==
LOC: M WUC 10:48
PROVIDERS: ATTEND Internal Medicine Medical Oncology
DX: C50.912 Malignant neoplasm of unspecified site of left female breast (principal); Z17.0 Estrogen receptor positive status [ER+]

== ENCOUNTER → 2020-10-04 | Outpatient (CLI) | payer OTHER, MEDICARE ==
[2020-10-04 13:57] LABS: BASO # 0.1 10^3/uL (0.0-0.2); BASO % 1.9 % (0.0-1.0); EOS # 0.1 10^3/uL (0.0-0.5); EOS % 4.2 % (0.0-3.0); HEMOGLOBIN 10.4 g/dl (12.0-15.5); LYMPH # 1.1 10^3/uL (1.5-5.0); LYMPH % 42.3 % (24.0-44.0); MEAN CORPUSCULAR HEMOGLOBIN 35.5 pg (27.0-33.0); MEAN CORPUSCULAR HGB CONC 34.7 g/dl (32.0-36.5); MEAN CORPUSCULAR VOLUME 102.4 fl (80.0-96.0); MONO # 0.2 10^3/uL (0.0-0.8); MONO % 6.5 % (0.0-8.0); NEUTROPHILS # 1.2 10^3/uL (1.5-8.5); NEUTROPHILS % 44.7 % (36.0-66.0); PLATELET COUNT, AUTOMATED 110 10^3/uL (150-450); RED BLOOD COUNT 2.93 10^6/uL (4.00-5.40); WHITE BLOOD COUNT 2.6 10^3/uL (4.0-10.0)
== END ==
LOC: M WUC 10:54
PROVIDERS: ATTEND Internal Medicine Medical Oncology
DX: C50.912 Malignant neoplasm of unspecified site of left female breast (principal); Z17.0 Estrogen receptor positive status [ER+]

== ENCOUNTER → 2020-10-04 | Outpatient (CLI) | payer OTHER, MEDICARE ==
[2020-10-04 14:29] LABS: HEMOGLOBIN A1c 5.3 %
[2020-10-04 14:33] LABS: CHOLESTEROL RISK RATIO 2.536 (<5); THYROID STIMULATING HORMONE 1.22 uIU/ML (0.358-3.740); TOTAL 25(OH) VITAMIN D 36.6 NG/ML (30.0-100.0)
== END ==
LOC: M WUC 10:57
PROVIDERS: ATTEND Internal Medicine Endocrinology, Diabetes & Metabolism
DX: E11.65 Type 2 diabetes mellitus with hyperglycemia (principal); E78.5 Hyperlipidemia, unspecified; E55.9 Vitamin D deficiency, unspecified

== ENCOUNTER 2020-10-17 18:29 | Emergency (ER) | payer OTHER, MEDICARE ==
[~2020-10-17] VITALS: Ht 160 cm; Wt 51.5 kg
[2020-10-17] MEDS ORDERED: LETR2.5T2 PO (18:37)
[2020-10-17] MEDS ORDERED: NS 500 ML IV ONE (18:45)
[2020-10-17 19:04] LABS: BASO # 0.1 10^3/uL (0.0-0.2); BASO % 2.7 % (0.0-1.0); EOS # 0.1 10^3/uL (0.0-0.5); EOS % 3.7 % (0.0-3.0); HEMATOCRIT 30.4 % (36.0-47.0); HEMOGLOBIN 10.2 g/dl (12.0-15.5); LYMPH # 1.2 10^3/uL (1.5-5.0); LYMPH % 40.5 % (24.0-44.0); MEAN CORPUSCULAR HEMOGLOBIN 34.6 pg (27.0-33.0); MEAN CORPUSCULAR HGB CONC 33.6 g/dl (32.0-36.5); MEAN CORPUSCULAR VOLUME 103.1 fl (80.0-96.0); MONO # 0.4 10^3/uL (0.0-0.8); MONO % 13.6 % (2.0-8.0); NEUTROPHILS # 1.1 10^3/uL (1.5-8.5); NEUTROPHILS % 38.8 % (36.0-66.0); PLATELET COUNT, AUTOMATED 209 10^3/uL (150-450); RED BLOOD COUNT 2.95 10^6/uL (4.00-5.40); WHITE BLOOD COUNT 2.9 10^3/uL (4.0-10.0)
--- NOTE | 2020-10-17 19:21 | REPVR ---
PROCEDURE INFORMATION: Exam: CT Cervical Spine Without Contrast Exam date and time: 10/17/2020 6:42 PM Age: 70 years old Clinical indication: Altered mental status TECHNIQUE: Imaging protocol: Computed tomography images of the cervical spine without contrast. Radiation optimization: All CT scans at this facility use at least one of these dose optimization techniques: automated exposure control; mA and/or kV adjustment per patient size (includes targeted exams where dose is matched to clinical indication); or iterative reconstruction. COMPARISON: No relevant prior studies available. FINDINGS: Limitations: Motion artifact degrades the image quality. Bones/joints: There is straightening of the normal cervical lordosis. There is a minimal superior endplate compression fracture of T1 without any radiolucent fracture line. No other fractures are seen. The bones have a diffusely demineralized appearance. There is hypertrophy of both transverse processes of C7. Discs/Spinal canal/Neural foramina: There is loss of disc height at the C2-C3, C3-C4, and C5-C6 levels. There are endplate spurs projecting anteriorly at the C5-C6 and C6-C7 levels. At the C2-C3 level, there is a central protrusion that causes mild spinal canal stenosis. At the C4-C5 level, there is a central protrusion that causes mild spinal canal stenosis and osteoarthritis of the left facet joint. At the C5-C6 level, there is mild spinal canal stenosis and mild right neural foraminal stenosis secondary to a broad-based posterior disc osteophyte complex and right uncovertebral hypertrophy. Prevertebral Space: No prevertebral soft tissue swelling. Oropharynx: There are punctate calcifications in the palatine tonsils, which represent palatine tonsilloliths and are the sequela of prior infection and/or inflammation. Lungs: The imaged lung apices are clear. The lungs were not fully imaged. Vasculature: There are atherosclerotic calcifications of the carotid bulbs. Soft tissues: Unremarkable. No soft tissue fluid collection. IMPRESSION: 1. No fracture in the cervical spine. 2. Minimal superior endplate compression fracture of T1. 3. C2-C3: Mild spinal canal stenosis. 4. C4-C5: Mild spinal canal stenosis. 5. C5-C6: Mild spinal canal stenosis and mild right neural foraminal stenosis. Electronically signed by: Aakash Augustin On 10/17/2020 19:22:02 PM
--- NOTE | 2020-10-17 19:21 | REPVR ---
PROCEDURE INFORMATION: Exam: CT Head Without Contrast Exam date and time: 10/17/2020 6:42 PM Age: 70 years old Clinical indication: Altered mental status/memory loss TECHNIQUE: Imaging protocol: Computed tomography of the head without contrast. Radiation optimization: All CT scans at this facility use at least one of these dose optimization techniques: automated exposure control; mA and/or kV adjustment per patient size (includes targeted exams where dose is matched to clinical indication); or iterative reconstruction. COMPARISON: CT Head without contrast 11/02/2017 7:55 AM FINDINGS: Brain: There is no CT evidence for an acute large vessel territorial infarct. No acute intracranial hemorrhage is seen. No mass effect, midline shift, or herniation is noted. There are non-specific foci of low attenuation in the periventricular and subcortical white matter, which are likely the sequela of chronic small vessel ischemic injury and are similar in appearance compared to the prior CT head on 11/02/2017. Cerebral ventricles: The ventricles are mildly dilated in proportion to the sulci, which is compatible with mild generalized cerebral volume loss that is similar in appearance compared to the prior CT head on 11/02/2017. Bones/joints: The skull is intact. No suspicious osteolytic or osteoblastic lesion. Paranasal sinuses: The imaged portions of the sinuses are well-aerated. No air-fluid levels are noted in the sinuses. Mastoid air cells: There is mild opacification of the right mastoid air cells. The left mastoid air cells are well aerated. Soft tissues: Unremarkable. No soft tissue fluid collection. IMPRESSION: No acute intracranial abnormality. Electronically signed by: Aakash Augustin On 10/17/2020 19:21:46 PM
[2020-10-17 19:42] LABS: ALBUMIN 3.4 GM/DL (3.2-5.2); ALT/SGPT 16 U/L (12-78); BILIRUBIN,DIRECT < 0.1 MG/DL (0.0-0.2); BILIRUBIN,TOTAL 0.1 MG/DL (0.2-1.0); BLOOD UREA NITROGEN 26 MG/DL (7-18); CALCIUM LEVEL 8.3 MG/DL (8.8-10.2); CARBON DIOXIDE LEVEL 23 MEQ/L (21-32); CHLORIDE LEVEL 107 MEQ/L (98-107); CK-MB VALUE MASS < 1.0 NG/ML (<3.6); CPK CREATINE PHOSPHOKINASE 57 U/L (26-192); CREATININE FOR GFR 1.46 MG/DL (0.55-1.30); ETHYL ALCOHOL (ETHANOL) 0.023 % (0.000-0.010); GLOMERULAR FILTRATION RATE 37.8 (>45); GLUCOSE, FASTING 131 MG/DL (70-100); MB/CK RELATIVE INDEX 1.75 (< OR =4); POTASSIUM SERUM 3.6 MEQ/L (3.5-5.1); SODIUM LEVEL 140 MEQ/L (136-145); TOTAL PROTEIN 6.8 GM/DL (6.4-8.2); TROPONIN I < 0.02 NG/ML (< 0.10)
--- NOTE | 2020-10-17 19:48 | REP ---
INDICATION: Altered Mental Status. COMPARISON: 11/02/2017. TECHNIQUE: SINGLE PORTABLE AP VIEW OF THE CHEST WAS PERFORMED. FINDINGS: No acute infiltrate or pulmonary edema. Heart is normal in size. There is calcification and ectasia of the thoracic aorta, unchanged. A skin fold projects over the lateral left lung field. IMPRESSION: NO ACUTE PULMONARY DISEASE. <Electronically signed by Jin Matthews > 10/17/20 1944
--- NOTE | 2020-10-17 19:51 | REPVR ---
PROCEDURE INFORMATION: Exam: CT Lumbar Spine Without Contrast Exam date and time: 10/17/2020 6:42 PM Age: 70 years old Clinical indication: Other: AMS; Additional info: Altered mental status TECHNIQUE: Imaging protocol: Computed tomography images of the lumbar spine without contrast. Total images: 205 Radiation optimization: All CT scans at this facility use at least one of these dose optimization techniques: automated exposure control; mA and/or kV adjustment per patient size (includes targeted exams where dose is matched to clinical indication); or iterative reconstruction. COMPARISON: No relevant prior studies available. FINDINGS: Limitations: No soft tissue reformatted sagittal or coronal images. Vertebrae: Numerous sclerotic vertebral bone lesions are suspicious for osteoblastic metastases, possibly from breast cancer. For example, there is a 10 mm spherical sclerotic lesion at the left posterior aspect the L1 vertebral body, a 7 mm sclerotic lesion at the posteroinferior L2 vertebral body, 6 mm sclerotic lesion in the posterior L3 vertebral body, a 11 mm sclerotic lesion at the right side of the superior L5 endplate, and a 7 mm sclerotic lesion in the right sacral ala. There are additional smaller sclerotic lesions. The lumbar vertebral bodies are normal in height. The curvature of lumbar spine is normal. The alignment of the lumbar spine is normal. T12-L1: No disc space narrowing. No disc bulge or protrusion. Normal facet joints. No neural foraminal stenosis. No lateral recess stenosis. No central canal stenosis. L1-L2: No disc space narrowing. No disc bulge or protrusion. Normal facet joints. No neural foraminal stenosis. No lateral recess stenosis. No central canal stenosis. L2-L3: No disc space narrowing. No disc bulge or protrusion. Normal facet joints. No neural foraminal stenosis. No lateral recess stenosis. No central canal stenosis. L3-L4: Mild disc space narrowing. Vacuum disc phenomenon. No disc bulge or protrusion. Moderate bilateral facet arthropathy No neural foraminal stenosis. No lateral recess stenosis. No central canal stenosis. L4-L5: No disc space narrowing. Disc degeneration with mild document is phenomenon. Mild disc bulge. No focal disc protrusion Mild bilateral facet arthropathy. No neural foraminal stenosis. No lateral recess stenosis. No central canal stenosis. L5-S1: Severe degenerative disc narrowing. Posterolateral endplate osteophytes extend to the into both neural foramina, left worse than right. Mild bilateral facet arthropathy. Mild right foraminal stenosis. Moderate left foraminal stenosis. No lateral recess stenosis. No central canal stenosis. Sacrum/coccyx: The visualized sacroiliac joints are normal. Vasculature: There is mild calcific atherosclerosis of the abdominal aorta and iliac arteries. There is no aneurysm. Soft tissues: The paravertebral soft tissues are unremarkable. IMPRESSION: 1. Numerous sclerotic bone lesions are suspicious for osteoblastic skeletal metastases, possibly from breast cancer. Nonemergent mammography and a whole body bone scan are recommended. 2. At L5-S1, there is severe degenerative disc narrowing endplate osteophytes and foraminal stenosis. 3. Mild degenerative changes at L3-L4 and L4-L5. Electronically signed by: Carlos Godinez On 10/17/2020 19:51:46 PM
[2020-10-17] MEDS ORDERED: B-12100010 PO (20:49)
[2020-10-17] MEDS ORDERED: DONE10TA90 PO (20:49)
[2020-10-17 21:30] VITALS: BP 124/62
[2020-10-17 21:34] LABS: RSV AMPLIFICATION NEGATIVE (NEGATIVE)
--- NOTE | 2020-10-18 19:18 | ECGEPIP ---
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
--- NOTE | 2020-10-18 20:09 | ED PDOC ---
Post-Departure Follow-Up ct c spine and ct ls spine faxed to [facility] for fu Radha Whitaker MD Oct 18, 2020 20:09
== END 2020-10-17 21:59 | disposition left against medical advice (07) ==
LOC: EDBD 18:29 → M ED 18:29 → CANBEDREQ 21:24 → M ED 21:59
DX: F03.90 Unspecified dementia, unspecified severity, without behavioral disturbance, psychotic disturbance, mood disturbance, and anxiety (principal); S22.010A Wedge compression fracture of first thoracic vertebra, initial encounter for closed fracture; W19.XXXA Unspecified fall, initial encounter; Y92.89 Other specified places as the place of occurrence of the external cause; R55 Syncope and collapse; C79.81 Secondary malignant neoplasm of breast; M85.9 Disorder of bone density and structure, unspecified; E11.9 Type 2 diabetes mellitus without complications; Z91.048 Other nonmedicinal substance allergy status; Z79.899 Other long term (current) drug therapy

== ENCOUNTER → 2020-10-26 | Outpatient (REF) | payer OTHER, MEDICARE ==
[~2020-10-26] MED LIST changes: +B-12100010 PO; +DONE10TA90 PO; +LETR2.5T2 PO
[2020-10-26 20:18] LABS: CREATININE, URINE 48.7 MG/DL; MALB URINE SIEMENS 12.3 MG/L; MAU/CREAT RATIO 25.2 MCG/MG (0.0-30.0)
== END ==
LOC: M SFHCWAGY 19:02
PROVIDERS: ATTEND Physician Assistant Medical
DX: E11.9 Type 2 diabetes mellitus without complications (principal)

== ENCOUNTER → 2020-12-09 | Outpatient (CLI) | payer OTHER, MEDICARE | LOC: M WUC 10:59 | PROVIDERS: ATTEND Internal Medicine Medical Oncology | DX: C50.912 Malignant neoplasm of unspecified site of left female breast (principal); Z17.0 Estrogen receptor positive status [ER+] ==

== ENCOUNTER → 2020-12-24 | Outpatient (CLI) | payer OTHER, MEDICARE ==
[2020-12-24 16:14] LABS: BASO % 0.6 % (0.0-1.0); EOS # 0.3 10^3/uL (0.0-0.5); EOS % 4.6 % (0.0-3.0); HEMOGLOBIN 11.8 g/dl (12.0-15.5); LYMPH # 2.1 10^3/uL (1.5-5.0); LYMPH % 39.5 % (24.0-44.0); MEAN CORPUSCULAR HEMOGLOBIN 31.2 pg (27.0-33.0); MEAN CORPUSCULAR HGB CONC 33.7 g/dl (32.0-36.5); MEAN CORPUSCULAR VOLUME 92.6 fl (80.0-96.0); MONO # 0.7 10^3/uL (0.0-0.8); MONO % 13.1 % (2.0-8.0); NEUTROPHILS # 2.3 10^3/uL (1.5-8.5); PLATELET COUNT, AUTOMATED 170 10^3/uL (150-450); RED BLOOD COUNT 3.78 10^6/uL (4.00-5.40); WHITE BLOOD COUNT 5.4 10^3/uL (4.0-10.0)
[2020-12-24 16:30] LABS: HEMOGLOBIN A1c 9.3 %
[2020-12-24 16:46] LABS: ALBUMIN 3.7 GM/DL (3.2-5.2); BILIRUBIN,TOTAL 0.2 MG/DL (0.2-1.0); CALCIUM LEVEL 9.3 MG/DL (8.8-10.2); CHOLESTEROL RISK RATIO 2.226 (<5); CREATININE FOR GFR 1.49 MG/DL (0.55-1.30); GLOMERULAR FILTRATION RATE 36.9 (>45); POTASSIUM SERUM 4.6 MEQ/L (3.5-5.1); TOTAL 25(OH) VITAMIN D 28.3 NG/ML (30.0-100.0); TOTAL PROTEIN 6.8 GM/DL (6.4-8.2)
[2020-12-24 16:47] LABS: PTH INTACT 39.4 PG/ML (18.5-88.0)
== END ==
LOC: M WUC 10:53
PROVIDERS: ATTEND Physician Assistant Medical
DX: D64.9 Anemia, unspecified (principal); E55.9 Vitamin D deficiency, unspecified; N18.2 Chronic kidney disease, stage 2 (mild)

== ENCOUNTER → 2021-01-03 | Outpatient (CLI) | payer OTHER, MEDICARE | LOC: M WUC 11:11 | PROVIDERS: ATTEND Nurse Practitioner Family | DX: C50.919 Malignant neoplasm of unspecified site of unspecified female breast (principal) ==

== ENCOUNTER → 2021-01-03 | Outpatient (CLI) | payer OTHER, MEDICARE ==
[2021-01-03 12:26] LABS: BASO # 0.1 10^3/uL (0.0-0.2); BASO % 1.1 % (0.0-1.0); EOS # 0.7 10^3/uL (0.0-0.5); EOS % 7.7 % (0.0-3.0); HEMATOCRIT 35.1 % (36.0-47.0); LYMPH # 3.3 10^3/uL (1.5-5.0); LYMPH % 38.7 % (24.0-44.0); MEAN CORPUSCULAR HEMOGLOBIN 30.9 pg (27.0-33.0); MEAN CORPUSCULAR HGB CONC 34.2 g/dl (32.0-36.5); MEAN CORPUSCULAR VOLUME 90.5 fl (80.0-96.0); MONO # 0.9 10^3/uL (0.0-0.8); MONO % 10.4 % (2.0-8.0); NEUTROPHILS # 3.5 10^3/uL (1.5-8.5); NEUTROPHILS % 41.7 % (36.0-66.0); PLATELET COUNT, AUTOMATED 153 10^3/uL (150-450); RED BLOOD COUNT 3.88 10^6/uL (4.00-5.40); WHITE BLOOD COUNT 8.4 10^3/uL (4.0-10.0)
[2021-01-03 13:02] LABS: ALBUMIN 3.7 GM/DL (3.2-5.2); BILIRUBIN,TOTAL 0.3 MG/DL (0.2-1.0); CREATININE FOR GFR 1.46 MG/DL (0.55-1.30); GLOMERULAR FILTRATION RATE 37.8 (>45); POTASSIUM SERUM 4.6 MEQ/L (3.5-5.1); TOTAL PROTEIN 7.3 GM/DL (6.4-8.2)
== END ==
LOC: M WUC 11:07
PROVIDERS: ATTEND Physician Assistant Medical
DX: N17.9 Acute kidney failure, unspecified (principal); C50.919 Malignant neoplasm of unspecified site of unspecified female breast

== ENCOUNTER → 2021-01-10 | Outpatient (CLI) | payer OTHER, MEDICARE ==
[2021-01-10 13:53] LABS: BASO # 0.1 10^3/uL (0.0-0.2); BASO % 1.1 % (0.0-1.0); EOS # 0.5 10^3/uL (0.0-0.5); HEMATOCRIT 36.3 % (36.0-47.0); HEMOGLOBIN 12.2 g/dl (12.0-15.5); LYMPH # 2.6 10^3/uL (1.5-5.0); LYMPH % 31.9 % (24.0-44.0); MEAN CORPUSCULAR HEMOGLOBIN 30.5 pg (27.0-33.0); MEAN CORPUSCULAR HGB CONC 33.6 g/dl (32.0-36.5); MEAN CORPUSCULAR VOLUME 90.8 fl (80.0-96.0); MONO # 0.7 10^3/uL (0.0-0.8); MONO % 8.1 % (2.0-8.0); NEUTROPHILS # 4.2 10^3/uL (1.5-8.5); NEUTROPHILS % 52.5 % (36.0-66.0); PLATELET COUNT, AUTOMATED 126 10^3/uL (150-450); WHITE BLOOD COUNT 8.1 10^3/uL (4.0-10.0)
== END ==
LOC: M WUC 10:41
PROVIDERS: ATTEND Nurse Practitioner Family
DX: C50.919 Malignant neoplasm of unspecified site of unspecified female breast (principal)

== ENCOUNTER → 2021-01-18 | Outpatient (CLI) | payer OTHER, MEDICARE ==
[2021-01-18 12:00] LABS: BASO # 0.1 10^3/uL (0.0-0.2); BASO % 0.8 % (0.0-1.0); EOS # 0.3 10^3/uL (0.0-0.5); EOS % 4.5 % (0.0-3.0); HEMOGLOBIN 12.4 g/dl (12.0-15.5); LYMPH # 2.3 10^3/uL (1.5-5.0); LYMPH % 30.1 % (24.0-44.0); MEAN CORPUSCULAR HGB CONC 34.4 g/dl (32.0-36.5); MONO # 0.7 10^3/uL (0.0-0.8); MONO % 8.9 % (2.0-8.0); NEUTROPHILS # 4.2 10^3/uL (1.5-8.5); NEUTROPHILS % 55.2 % (36.0-66.0); PLATELET COUNT, AUTOMATED 160 10^3/uL (150-450); WHITE BLOOD COUNT 7.6 10^3/uL (4.0-10.0)
== END ==
LOC: M WUC 10:53
PROVIDERS: ATTEND Nurse Practitioner Family
DX: C50.919 Malignant neoplasm of unspecified site of unspecified female breast (principal)

== ENCOUNTER → 2021-01-25 | Outpatient (REF) | payer OTHER, MEDICARE ==
[2021-01-25 11:16] LABS: ALBUMIN 3.9 GM/DL (3.2-5.2); BILIRUBIN,TOTAL 0.5 MG/DL (0.2-1.0); CALCIUM LEVEL 8.7 MG/DL (8.8-10.2); CREATININE FOR GFR 1.68 MG/DL (0.55-1.30); GLOMERULAR FILTRATION RATE 32.2 (>45); POTASSIUM SERUM 4.4 MEQ/L (3.5-5.1); TOTAL PROTEIN 7.4 GM/DL (6.4-8.2)
== END ==
LOC: M WUC 09:30
PROVIDERS: ATTEND Nurse Practitioner Family
DX: C50.919 Malignant neoplasm of unspecified site of unspecified female breast (principal); R79.89 Other specified abnormal findings of blood chemistry

== ENCOUNTER → 2021-02-10 | Outpatient (REF) | payer OTHER, MEDICARE ==
[2021-02-10 13:57] LABS: BASO # 0.1 10^3/uL (0.0-0.2); BASO % 0.8 % (0.0-1.0); EOS # 0.5 10^3/uL (0.0-0.5); EOS % 6.3 % (0.0-3.0); HEMATOCRIT 36.3 % (36.0-47.0); HEMOGLOBIN 12.3 g/dl (12.0-15.5); LYMPH # 2.5 10^3/uL (1.5-5.0); LYMPH % 34.6 % (24.0-44.0); MEAN CORPUSCULAR HEMOGLOBIN 30.6 pg (27.0-33.0); MEAN CORPUSCULAR HGB CONC 33.9 g/dl (32.0-36.5); MEAN CORPUSCULAR VOLUME 90.3 fl (80.0-96.0); MONO # 0.7 10^3/uL (0.0-0.8); MONO % 9.9 % (2.0-8.0); NEUTROPHILS # 3.5 10^3/uL (1.5-8.5); NEUTROPHILS % 48.1 % (36.0-66.0); PLATELET COUNT, AUTOMATED 151 10^3/uL (150-450); RED BLOOD COUNT 4.02 10^6/uL (4.00-5.40); WHITE BLOOD COUNT 7.3 10^3/uL (4.0-10.0)
== END ==
LOC: M WUC 12:12
PROVIDERS: ATTEND Nurse Practitioner Family
DX: C50.919 Malignant neoplasm of unspecified site of unspecified female breast (principal)

== ENCOUNTER → 2021-02-17 | Outpatient (CLI) | payer OTHER, MEDICARE ==
[2021-02-17 13:15] LABS: BASO # 0.1 10^3/uL (0.0-0.2); BASO % 1.1 % (0.0-1.0); EOS # 0.5 10^3/uL (0.0-0.5); HEMATOCRIT 35.1 % (36.0-47.0); HEMOGLOBIN 11.8 g/dl (12.0-15.5); LYMPH # 2.1 10^3/uL (1.5-5.0); LYMPH % 32.9 % (24.0-44.0); MEAN CORPUSCULAR HEMOGLOBIN 30.4 pg (27.0-33.0); MEAN CORPUSCULAR HGB CONC 33.6 g/dl (32.0-36.5); MEAN CORPUSCULAR VOLUME 90.5 fl (80.0-96.0); MONO # 0.6 10^3/uL (0.0-0.8); MONO % 9.5 % (2.0-8.0); NEUTROPHILS # 3.2 10^3/uL (1.5-8.5); NEUTROPHILS % 49.3 % (36.0-66.0); PLATELET COUNT, AUTOMATED 180 10^3/uL (150-450); RED BLOOD COUNT 3.88 10^6/uL (4.00-5.40); WHITE BLOOD COUNT 6.4 10^3/uL (4.0-10.0)
== END ==
LOC: M WUC 10:58
PROVIDERS: ATTEND Nurse Practitioner Family
DX: C50.919 Malignant neoplasm of unspecified site of unspecified female breast (principal)

== ENCOUNTER 2021-04-07 20:45 | Inpatient (IN) | payer OTHER, MEDICARE ==
[~2021-04-07] VITALS: Ht 154.9 cm; Wt 47.7 kg
[2021-04-07] MEDS: LEVEMIR (INSULIN DETEMIR) 1 UNITS/0.01ML SC SCH (21:00)
[2021-04-07] MEDS ORDERED: LORA-674 PO (21:05)
[2021-04-07] MEDS ORDERED: INSU100I9 SC (21:05)
[2021-04-07 21:41] LABS: VENOUS BASE EXCESS 1.2 (-2.0-2.0); VENOUS HCO3 25.3 MEQ/L (23.0-27.0); VENOUS O2 SATURATION 94.1 % (60.0-80.0); VENOUS PARTIAL PRESSURE CO2 38.7 mmHg (38.0-50.0); VENOUS PARTIAL PRESSURE O2 71.1 mmHg (30.0-50.0); VENOUS PH 7.434 UNITS (7.330-7.430); VENOUS STANDARD HCO3 25.4 MEQ/L; VENOUS TOTAL CO2 26.5 MEQ/L (24.0-28.0)
[2021-04-07 21:44] LABS: BASO # 0.1 10^3/uL (0.0-0.2); BASO % 0.9 % (0.0-1.0); EOS # 0.4 10^3/uL (0.0-0.5); EOS % 5.4 % (0.0-3.0); HEMATOCRIT 34.9 % (36.0-47.0); HEMOGLOBIN 12.1 g/dl (12.0-15.5); LYMPH # 3.4 10^3/uL (1.5-5.0); LYMPH % 46.1 % (24.0-44.0); MEAN CORPUSCULAR HEMOGLOBIN 30.3 pg (27.0-33.0); MEAN CORPUSCULAR HGB CONC 34.7 g/dl (32.0-36.5); MEAN CORPUSCULAR VOLUME 87.5 fl (80.0-96.0); MONO # 0.5 10^3/uL (0.0-0.8); MONO % 6.5 % (2.0-8.0); NEUTROPHILS % 40.8 % (36.0-66.0); PLATELET COUNT, AUTOMATED 148 10^3/uL (150-450); RED BLOOD COUNT 3.99 10^6/uL (4.00-5.40); WHITE BLOOD COUNT 7.4 10^3/uL (4.0-10.0)
--- NOTE | 2021-04-07 21:54 | REPVR ---
PROCEDURE INFORMATION: Exam: CT Head Without Contrast Exam date and time: 04/07/2021 9:14 PM Age: 71 years old Clinical indication: Altered mental status/memory loss; Confusion or disorientation TECHNIQUE: Imaging protocol: Computed tomography of the head without contrast. Radiation optimization: All CT scans at this facility use at least one of these dose optimization techniques: automated exposure control; mA and/or kV adjustment per patient size (includes targeted exams where dose is matched to clinical indication); or iterative reconstruction. COMPARISON: CT Head without contrast 10/17/2020 6:57 PM FINDINGS: Brain: Mild decreased attenuation of the supratentorial white matter is likely secondary to chronic microvascular ischemia. No acute intracranial hemorrhage. Cerebral ventricles: Ventricular and subarachnoid spaces are age appropriate. Paranasal sinuses: Minimal paranasal sinus disease. Mastoid air cells: Visualized mastoid air cells are well aerated. Vasculature: Intracranial vascular calcification. Bones/joints: Unremarkable. No acute fracture. Soft tissues: Unremarkable. IMPRESSION: No acute intracranial abnormality. Electronically signed by: Isaac Arias On 04/07/2021 21:53:56 PM
--- NOTE | 2021-04-07 21:56 | REPVR ---
PROCEDURE INFORMATION: Exam: XR Chest Exam date and time: 04/07/2021 9:09 PM Age: 71 years old Clinical indication: Chest wall pain; Additional info: Altered mental status TECHNIQUE: Imaging protocol: XR of the chest. Views: 1 view. COMPARISON: ME PORTABLE CHEST X-RAY 10/17/2020 6:48 PM FINDINGS: Lungs: No consolidation. Calcified granuloma at the left midlung. Pleural spaces: Small right-sided pleural effusion versus pleural thickening. Heart/Mediastinum: Unremarkable. No cardiomegaly. Vasculature: Elongation of the thoracic aorta with calcification. Bones/joints: Osteopenia. IMPRESSION: 1. Small right-sided pleural effusion versus pleural thickening. 2. No consolidation. Electronically signed by: Isaac Arias On 04/07/2021 21:55:41 PM
[2021-04-07 22:08] LABS: AMPHETAMINES LEVEL URINE NEGATIVE (NEGATIVE); BARBITURATES URINE NEGATIVE (NEGATIVE); BENZODIAZEPINES URINE NEGATIVE (NEGATIVE); CANNABINOIDS URINE NEGATIVE (NEGATIVE); COCAINE METABOLITE URINE NEGATIVE (NEGATIVE); METHADONE URINE NEGATIVE (NEGATIVE); OPIATES URINE NEGATIVE (NEGATIVE); PHENCYCLIDINE URINE NEGATIVE (NEGATIVE)
[2021-04-07 22:29] LABS: ACETAMINOPHEN LEVEL < 2.0 UG/ML (10.0-30.0); ALBUMIN 3.4 GM/DL (3.2-5.2); ALT/SGPT 22 U/L (12-78); BILIRUBIN,DIRECT < 0.1 MG/DL (0.0-0.2); BILIRUBIN,TOTAL 0.2 MG/DL (0.2-1.0); BLOOD UREA NITROGEN 19 MG/DL (7-18); CALCIUM LEVEL 8.6 MG/DL (8.8-10.2); CARBON DIOXIDE LEVEL 29 MEQ/L (21-32); CHLORIDE LEVEL 106 MEQ/L (98-107); CK-MB VALUE MASS 1.7 NG/ML (<3.6); CPK CREATINE PHOSPHOKINASE 113 U/L (26-192); CREATININE FOR GFR 1.56 MG/DL (0.55-1.30); ETHYL ALCOHOL (ETHANOL) < 0.003 % (0.000-0.010); GLOMERULAR FILTRATION RATE 34.9 (>39); GLUCOSE, FASTING 245 MG/DL (70-100); POTASSIUM SERUM 3.9 MEQ/L (3.5-5.1); SALICYLATE LEVEL < 1.7 MG/DL (5.0-30.0); SODIUM LEVEL 140 MEQ/L (136-145); TOTAL PROTEIN 6.7 GM/DL (6.4-8.2); TROPONIN I < 0.02 NG/ML (< 0.10)
[2021-04-08 01:00] LABS: RSV AMPLIFICATION NEGATIVE (NEGATIVE)
[2021-04-08] MEDS ORDERED: INSULANT SC (01:43)
[2021-04-08] MEDS ORDERED: QUET1TAB17 PO (01:43)
[2021-04-08] MEDS ORDERED: ALPE1TAB3 PO (01:43)
[2021-04-08] MEDS ORDERED: VENL-37 PO (01:43)
[2021-04-08] MEDS ORDERED: LORA-622 PO (01:43)
[2021-04-08] MEDS ORDERED: HOME MED LIST COMPLETE! XX SCH (01:45)
[2021-04-08] MEDS ORDERED: MOM 30ML SUSPENSION UDC PO PRN (02:00)
[2021-04-08] MEDS ORDERED: ACETAMINOPHEN TAB 650MG DOSE (2X325MG) PO PRN (02:00)
[2021-04-08] MEDS ORDERED: GLUCAGON INJ 1MG VIAL SC PRN (02:00)
[2021-04-08] MEDS ORDERED: GLUCOSE 4GM CHEW TABLET PO PRN (02:00)
[2021-04-08] MEDS ORDERED: DEXTROSE 50% 50 ML SYRINGE IV PRN (02:00)
[2021-04-08] MEDS ORDERED: MAALOX 30 ML SUSP *UDC PO PRN (02:00)
--- NOTE | 2021-04-08 02:04 | HPEPDOC ---
[facility] Medical History & Physical Date of Admission Apr 08, 2021 Date of Service: Apr 08, 2021 Attending Physician: ELMER CHAND MD History and Physical CHIEF COMPLAINT: [71 y/o female brought to ED via EMS for altered mental status] HISTORY OF PRESENT ILLNESS: [This is a 71 y/o female with a pmh of dementia, hld, justin on cpap, ckd3, breast ca s/p right mastectomy, iddm2, depression who reports to our ED on 04/07 via EMS for altered mental status. Patient herself is a poor historian and is not sure of the events of last night. Patient however is aware that she is in the hospital because of something that occurred with her. She is upset and repeatedly asks if she will be okay. who is in the room explains that she has been going downhill for sometime. Apparently, last night while trying to administer her insulin, she became fearful that he was trying to harm her. Apparently she fled the house yelling and thus EMS was called. states that she has issues performing her activities of daily living due to her declining mentation. apparently told ED staff that she has been having audio and visual hallucinations as well. They deny recent illness, recent falls, recent poor appetite. Medical workup performed in the ED grossly negative.] PAST MEDICAL HISTORY: 1. [See HPI PAST SURGICAL HISTORY: 1. [Appendectomy]. 2. [Right sided mastectomy]. SOCIAL HISTORY: Resides in: [Home with ] Tobacco use:[ denies] ETOH: [ denies] Illicit drug use: [ denies] FAMILY HISTORY: Mother - dementia, cad ALLERGIES: Please see below. REVIEW OF SYSTEMS: Unable to obtain d/t mentation HOME MEDICATIONS: Please see below. PHYSICAL EXAMINATION: VITAL SIGNS: Please see below. GENERAL APPEARANCE: [71 y/o female who is alert but not entirely oriented. She does not appear to be in any respiratory distress]. HEENT: [No mass or lesion. EOMI. No scleral icterus. Nares patent. oral mucosa moist]. CARDIOVASCULAR: [Regular rate, rhythm. No murmurs, rubs, gallops]. LUNGS: [Good air flow b/l. No wheezing, rales, rhonchi]. ABDOMEN: [Soft, nontender]. MUSCULOSKELETAL: [No joint deformity]. EXTREMITIES: [No pedal edema. No overlying skin changes. Pulses intact.]. NEUROLOGICAL: [Speech clear. Oriented to person, place. No focal deficits.]. PSYCHIATRIC: [Patient is tearful during history and physical exam.]. LABORATORY DATA: See below. IMAGING: [CXR: FINDINGS: Lungs: No consolidation. Calcified granuloma at the left midlung. Pleural spaces: Small right-sided pleural effusion versus pleural thickening. Heart/Mediastinum: Unremarkable. No cardiomegaly. Vasculature: Elongation of the thoracic aorta with calcification. Bones/joints: Osteopenia. IMPRESSION: 1. Small right-sided pleural effusion versus pleural thickening. 2. No consolidation. CT Head: FINDINGS: Brain: Mild decreased attenuation of the supratentorial white matter is likely secondary to chronic microvascular ischemia. No acute intracranial hemorrhage. Cerebral ventricles: Ventricular and subarachnoid spaces are age appropriate. Paranasal sinuses: Minimal paranasal sinus disease. Mastoid air cells: Visualized mastoid air cells are well aerated. Vasculature: Intracranial vascular calcification. Bones/joints: Unremarkable. No acute fracture. Soft tissues: Unremarkable. IMPRESSION: No acute intracranial abnormality. ] MICROBIOLOGY: Please see below. ASSESSMENT: [This is a 71 y/o female with a pmh of dementia, hld, justin on cpap, ckd3, breast ca s/p right mastectomy, iddm2, depression who reports to our ED on 04/07 via EMS for altered mental status. Patient herself is a poor historian and is not sure of the events of last night. Medical workup performed in the ED grossly negative.]. . PLAN: 1. [AMS - Most likely d/t progressive dementia - Medical workup so far negative - Will check b12/folate/mma - Will check procal to fully r/o infection - ground services instructor consulted - pt and her interested in placement - Attempted to discuss code status - not ready to make decision - continue at home seroquel - continue at home memantine/donepezil - patient sitter - admit to med surg under obs 2. DM - continue basal insulin - sliding scale coverage - hypoglycemic protocol 3. Depression - continue effexor 4. CKD3 - cr at baseline DVT prophylaxis - mechanical]. Vital Signs Vital Signs Date Time Temp Pulse Resp B/P (MAP) Pulse Ox O2 Delivery O2 Flow Rate FiO2 04/08/21 00:03 69 20 119/69 (86) 100 Room Air 04/07/21 21:00 98.7 Laboratory Data Labs 24H Laboratory Tests 2 04/07/21 21:29: Immature Granulocyte % (Auto) 0.3, Neutrophils (%) (Auto) 40.8, Lymphocytes (%) (Auto) 46.1H, Monocytes (%) (Auto) 6.5, Eosinophils (%) (Auto) 5.4H, Basophils (%) (Auto) 0.9, Neutrophils # (Auto) 3.0, Lymphocytes # (Auto) 3.4, Monocytes # (Auto) 0.5, Eosinophils # (Auto) 0.4, Basophils # (Auto) 0.1, Nucleated Red Blood Cells % (auto) 0.0, Urine Color COLORLESS, Urine Appearance CLEAR, Urine pH 6.0, Urine Specific [place] 1.001L, Urine Protein NEGATIVE, Urine Glucose (UA) 3+H, Urine Ketones NEGATIVE, Urine Blood NEGATIVE, Urine Nitrite NEGATIVE, Urine Bilirubin NEGATIVE, Urine Urobilinogen 0.2, Urine Leukocyte Esterase NEGATIVE, Urine WBC (Auto) 2, Urine RBC (Auto) 0, Urine Hyaline Casts (Auto) 0, Urine Bacteria (Auto) NEGATIVE, Urine Squamous Epithelial Cells 0, Urine Sperm (Auto) , Blood Gas Bicarbonate Standard 25.4, Venous Blood pH 7.434H, Venous Blood Partial Pressure CO2 38.7, Venous Blood Partial Pressure O2 71.1H, Venous Blood Total Carbon Dioxide 26.5, Venous Blood HCO3 25.3, Venous Blood Oxygen Saturation 94.1H, Venous Blood Base Excess 1.2, Anion Gap 5L, Glomerular Filtrat ion Rate 34.9L, Lactic Acid Level 1.0, Calcium Level 8.6L, Total Bilirubin 0.2, Direct Bilirubin < 0.1, Aspartate Amino Transf (AST/SGOT) 16, Alanine Aminotransferase (ALT/SGPT) 22, Alkaline Phosphatase 67, Ammonia 27, Total Creatine Kinase 113, Creatine Kinase MB 1.7, Creatine Kinase MB Relative Index 1.50, Troponin I < 0.02, Total Protein 6.7, Albumin 3.4, Albumin/Globulin Ratio 1.0L, Thyroid Stimulating Hormone (TSH) 4.010H, Salicylates Level < 1.7L, Urine Opiates Screen NEGATIVE, Urine Methadone Screen NEGATIVE, Acetaminophen Level < 2.0L, Urine Barbiturates Screen NEGATIVE, Urine Phencyclidine Screen NEGATIVE, Urine Amphetamines Screen NEGATIVE, Urine Benzodiazepines Screen NEGATIVE, Urine Cocaine Metabolite Screen NEGATIVE, Urine Cannabinoids Screen NEGATIVE, Ethyl Alcohol Level < 0.003 04/07/21 21:35: POC Troponin I (Misc) 0.01 04/07/21 23:53: Coronavirus (COVID-19)(PCR) NEGATIVE, Influenza Type A (RT-PCR) NEGATIVE, Influenza Type B (RT-PCR) NEGATIVE, Respiratory Syncytial Virus (PCR) NEGATIVE CBC/BMP Laboratory Tests 04/07/21 21:29 Home Medications Scheduled Alpelisib (Piqray) 1 Each Tablet, 1 TAB PO DAILY Cyanocobalamin (Vitamin B-12) (Vitamin B-12) 1,000 Mcg Capsule, 1,000 MCG PO DAILY Donepezil HCl (Donepezil HCl) 10 Mg Tablet, 10 MG PO DAILY Insulin Glargine (Lantus) 100 Unit/1 Ml Vial, 15 UNITS SC QHS Insulin Lispro (Insulin Lispro Kwikpen U-100) 100 Unit/1 Ml Insuln.pen, 1 DOSE SC ACHS PER SLIDING SCALE Loratadine (Loratadine) 10 Mg Tablet, 10 MG PO DAILY Memantine HCl (Memantine HCl) 10 Mg Tab, 10 MG PO BID Quetiapine Fumarate (Quetiapine Fumarate) 25 Mg Tablet, 25 MG PO BID Venlafaxine HCl (Venlafaxine HCl) 75 Mg Tablet, 75 MG PO DAILY Allergies Coded Allergies: TAPE (Verified Allergy, Unknown, 11/02/17) A-FIB/CHADSVASC A-FIB History Current/History of A-Fib/PAF?: No MI ROSALES Apr 08, 2021 02:04
[2021-04-08 03:13] LABS: THYROXINE (T4) 9.5 UG/DL (4.5-12.0)
[2021-04-08 03:24] LABS: FOLATE 8.3 NG/ML (>5.4); VITAMIN B12 LEVEL > 2000 PG/ML (247-911)
[2021-04-08] MEDS: HumaLOG INSULIN (NovoLOG) PER UNIT SC SCH ×4 (07:49→21:00)
[2021-04-08] MEDS ORDERED: CYANOCOBALAMIN 500 MCG TAB PO SCH (09:00)
[2021-04-08 10:14] VITALS: BP 130/80
[2021-04-08] MEDS: DOCUSATE SODIUM 100MG CAPSULE PO SCH ×2 (10:22→21:18)
[2021-04-08] MEDS: MEMANTINE 5MG TABLET (NAMENDA) PO SCH ×2 (10:22→21:17)
[2021-04-08] MEDS: VENLAFAXINE 37.5 MG TAB PO SCH (10:22)
[2021-04-08] MEDS: DONEPEZIL 5 MG TAB PO SCH (10:22)
[2021-04-08] MEDS: QUEtiapine FUMARATE 25 MG TAB PO SCH ×2 (10:22→21:18)
[2021-04-08] MEDS: LORATADINE 10 MG TAB PO SCH (10:22)
--- NOTE | 2021-04-08 13:14 | IPNPDOC ---
Text Note Date of Service The patient was seen on 04/08/21. NOTE Subjective: Patient is a 71-year-old female with past medical history of jacquelin ntia who presented to the emergency department on 04/07/2021 for altered mental status. Patient is a poor historian herself is unsure of the events from the previous night. Patient was admitted for placement issues as the medical work- up for altered mental status was grossly negative and the patient needed to be admitted for placement as family was unable to care for the patient anymore. Patient does not complain of any pain at this time and is unsure why she is here. Review of systems: Patient is unable to provide a full review of systems but denies any pain. Physical exam: Vitals: See below General: Alert but not oriented female who was sitting in chair eating breakfast when I walked into her room. Patient not appear to be in any acute distress. HEENT: Normocephalic, atraumatic, moist mucous membranes. Neck: No lymphadenopathy or thyromegaly Cardiac: Regular rate and rhythm, no murmurs, normal S1, normal S2 Pulm: Clear to auscultation bilaterally. No wheezes, rhonchi, rales Abd: Nondistended, nontender to palpation, normal bowel sounds Ext: No edema bilateral lower extremities Labs: See below Imaging: No new imaging has been performed Assessment/plan: 71-year-old female with past medical history of dementia who presented for altered mental status with negative work-up for other causes for her altered mental status who will most likely need placement. 1. Altered mental status, most likely secondary to progressive dementia. Laboratory studies have been nonrevealing. Patient admitted to medical surgical floor under observation initially but has been since changed to inpatient as she will need most likely to be placed. Discharge planning has been contacted who will begin the process of placing the patient. 2. Diabetes mellitus. Continue basal insulin. Continue sliding scale coverage. 3. Depression. Continue Effexor. 4. Chronic kidney disease stage III. Creatinine at baseline. DVT Prophylaxis: Teds and sequentials Disposition: Pending placement VS,Fishbone, I+O VS, Fishbone, I+O Laboratory Tests 04/07/21 21:29 Vital Signs Date Time Temp Pulse Resp B/P (MAP) Pulse Ox O2 Delivery O2 Flow Rate FiO2 04/08/21 10:14 97.9 69 22 130/80 (44) 100 Room Air SHELLY QUIROZ DO Apr 08, 2021 13:14
[2021-04-08 14:00] VITALS: BP 140/80
--- NOTE | 2021-04-08 19:12 | ECGEPIP ---
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
[2021-04-08] MEDS: LEVEMIR (INSULIN DETEMIR) 1 UNITS/0.01ML SC SCH (21:17)
[2021-04-08 21:51] VITALS: BP 149/68
[2021-04-09 06:00] VITALS: BP 139/71
[2021-04-09] MEDS: HumaLOG INSULIN (NovoLOG) PER UNIT SC SCH ×4 (08:16→19:58)
[2021-04-09] MEDS: MEMANTINE 5MG TABLET (NAMENDA) PO SCH ×2 (08:16→19:59)
[2021-04-09] MEDS: DOCUSATE SODIUM 100MG CAPSULE PO SCH ×2 (08:16→19:59)
[2021-04-09] MEDS: QUEtiapine FUMARATE 25 MG TAB PO SCH ×2 (08:17→19:59)
[2021-04-09] MEDS: LORATADINE 10 MG TAB PO SCH (08:17)
[2021-04-09] MEDS: DONEPEZIL 5 MG TAB PO SCH (08:17)
[2021-04-09] MEDS: VENLAFAXINE 37.5 MG TAB PO SCH (08:17)
--- NOTE | 2021-04-09 11:52 | IPNPDOC ---
Text Note Date of Service The patient was seen on 04/09/21. NOTE Subjective: Patient is a 71-year-old female with a past medical history of dementia presented the emergency department on 04/07/2021 for altered mental status. Medical work-up has been negative. Patient is awaiting placement as her family is no longer able to care for her. Patient is doing well and is not complaining of any pain right now. Physical exam: Vitals: See below General: Alert but not oriented female who was sitting at the nurses station when I walked onto the floor. Patient did not appear to be in any acute distress. Patient thought she was in [place], [place] and was unsure of the year or the month HEENT: Normocephalic, atraumatic, moist mucous membranes. Neck: No lymphadenopathy or thyromegaly Cardiac: Regular rate and rhythm, no murmurs, normal S1, normal S2 Pulm: Clear to auscultation bilaterally. No wheezes, rhonchi, rales Abd: Nondistended, nontender to palpation, normal bowel sounds Ext: No edema bilateral lower extremities Labs: See below Imaging: No new imaging has been performed Assessment/plan: 71-year-old female with past medical history of dementia who presented for altered mental status with negative medical work-up for other causes for altered mental status will note most likely need placement due to the worsening of her dementia. 1. Altered mental status, most likely secondary to progressive dementia. Laboratory studies been nonrevealing. Patient will need placement which the process was started yesterday. Patient will remain in the hospital until a bed is found in a [facility] facility. 2. Diabetes mellitus. Continue basal insulin and sliding scale coverage. 3. Depression. Continue Effexor. 4. Chronic kidney disease stage III. Creatinine at baseline. DVT Prophylaxis: Teds and sequentials Disposition: Pending placement. Patient will be made ALC today. VS,Fishbone, I+O VS, Fishbone, I+O Vital Signs Date Time Temp Pulse Resp B/P (MAP) Pulse Ox O2 Delivery O2 Flow Rate FiO2 04/09/21 06:00 98.2 69 18 139/71 (93) 98 Room Air I&O- Last 24 Hours up to 6 AM 04/09/21 06:00 Intake Total 1560 ml Balance 1560 ml SHELLY QUIROZ DO Apr 09, 2021 11:52
[2021-04-09 14:00] VITALS: BP 143/75
[2021-04-09] MEDS: LEVEMIR (INSULIN DETEMIR) 1 UNITS/0.01ML SC SCH (19:58)
[2021-04-09 22:00] VITALS: BP 156/76
[2021-04-10 06:00] VITALS: BP 113/69
[2021-04-10] MEDS: DONEPEZIL 5 MG TAB PO SCH (07:56)
[2021-04-10] MEDS: HumaLOG INSULIN (NovoLOG) PER UNIT SC SCH ×4 (07:56→21:00)
[2021-04-10] MEDS: QUEtiapine FUMARATE 25 MG TAB PO SCH ×2 (07:56→20:59)
[2021-04-10] MEDS: LORATADINE 10 MG TAB PO SCH (07:56)
[2021-04-10] MEDS: MEMANTINE 5MG TABLET (NAMENDA) PO SCH ×2 (07:56→20:59)
[2021-04-10] MEDS: DOCUSATE SODIUM 100MG CAPSULE PO SCH ×2 (07:56→20:59)
[2021-04-10] MEDS: VENLAFAXINE 37.5 MG TAB PO SCH (07:57)
[2021-04-10] MEDS ORDERED: RAMELTEON 8 MG TAB (ROZEREM) PO ONE (09:30)
[2021-04-10] MEDS: LEVEMIR (INSULIN DETEMIR) 1 UNITS/0.01ML SC SCH (20:59)
[2021-04-11 06:30] VITALS: BP 128/60
[2021-04-11] MEDS: HumaLOG INSULIN (NovoLOG) PER UNIT SC SCH ×4 (07:30→21:00)
[2021-04-11] MEDS: VENLAFAXINE 37.5 MG TAB PO SCH (09:00)
[2021-04-11] MEDS: DONEPEZIL 5 MG TAB PO SCH (09:10)
[2021-04-11] MEDS: MEMANTINE 5MG TABLET (NAMENDA) PO SCH ×2 (09:10→20:20)
[2021-04-11] MEDS: DOCUSATE SODIUM 100MG CAPSULE PO SCH ×2 (09:11→20:20)
[2021-04-11] MEDS: QUEtiapine FUMARATE 25 MG TAB PO SCH ×2 (09:11→20:20)
[2021-04-11] MEDS: LORATADINE 10 MG TAB PO SCH (09:11)
--- NOTE | 2021-04-11 13:11 | DS.PDOC ---
Discharge Summary General Date of Admission Apr 08, 2021 at 09:27 Date of Discharge 04/12/2021 Attending Physician: SHELLY QUIROZ DO Discharge Summary PROCEDURES PERFORMED DURING STAY: None. ADMITTING DIAGNOSES: 1. Altered mental status. 2. Diabetes mellitus 3. Depression 4. CKD stage III DISCHARGE DIAGNOSES: 1. Progressive dementia. 2. Diabetes mellitus 3. Depression 4. Chronic kidney disease stage III COMPLICATIONS/CHIEF COMPLAINT: Dementia. HISTORY OF PRESENT ILLNESS: Patient is a 71-year-old female with past medical history dementia, hyperlipidemia, obstructive sleep apnea on CPAP, CKD stage III, breast cancer status post right mastectomy, diabetes mellitus, depression who reported the emergency department on 04/07/2021 via EMS for altered mental status. Patient is a poor historian is not sure of the events that happened. Patient is aware that she is in the hospital because of something that occurred around her. Patient is upset and repeatedly asked if she will be okay. who is in the room explains that she is been going downhill for some time. Apparently last night (04/07/2021) while trying to administer insulin, patient became fearful that he was trying to harm her. Apparently she fled the house yelling and thus EMS was called. states that the patient has been having issues performing her activities of daily living due to her declining mentation. apparently told the ED staff that she has been having audio and Vistaril hallucinations as well. They deny any recent illness, recent falls recent poor appetite. Medical work-up in the emergency department was negative. Patient was admitted for worsening of dementia for possible placement. HOSPITAL COURSE: Throughout the patient's hospitalization, patient continued to be unaware of her surroundings. Patient stated numerous times that she was alone and that her family has left her. Patient asked me multiple times about if she w as going to be okay and required reassurance that she would be taking care of. Patient was very concerned about her family as well as her discharge and how she was going to get home. I explained numerous times to the patient that we would take care of everything. Patient would not remember these conversations each time I would see her. Patient did not have any medical complaints and does not complain of any pain at this time. Patient spent the weekend in the hospital and on 04/11/2021, a bed was found at the [facility] in [place], [place] for discharge on 04/12/2021. Patient will be discharged early in the morning on 04/12/2021. DISCHARGE MEDICATIONS: Please see below. ALLERGIES: Please see below. PHYSICAL EXAMINATION ON DISCHARGE: VITAL SIGNS: Please see below. General: Alert but not oriented female who was sitting in bedside chair with an empty tray in front of her as she is just finished lunch. Patient became tearful during the examination but was able to be consoled with multiple rounds of reassurance. Patient did not appear to be in any acute distress. HEENT: Normocephalic, atraumatic, moist mucous membranes. Neck: No lymphadenopathy or thyromegaly Cardiac: Regular rate and rhythm, no murmurs, normal S1, normal S2 Pulm: Clear to auscultation bilaterally. No wheezes, rhonchi, rales Abd: Nondistended, nontender to palpation, normal bowel sounds Ext: No edema bilateral lower extremities LABORATORY DATA: Please see below. IMAGING: Chest x-ray performed on 04/07/2021 is reported to show small right- sided pleural effusion versus pleural thickening. No consolidation. CT scan of the head performed without contrast on 04/07/2021 was reported to show no acute intracranial abnormality PROGNOSIS: Fair ACTIVITY: As tolerated. DIET: Consistent carbohydrate DISCHARGE PLAN: [facility]charge to [facility] in [place], [place] DISPOSITION: . DISCHARGE INSTRUCTIONS: 1. Follow-up with the provider at [facility] in [place], [place]. ITEMS TO FOLLOWUP ON ON OUTPATIENT: 1. None. DISCHARGE CONDITION: Stable. TIME SPENT ON DISCHARGE: 25 minutes. Vital Signs/I&Os Vital Signs Date Time Temp Pulse Resp B/P (MAP) Pulse Ox O2 Delivery O2 Flow Rate FiO2 04/11/21 06:30 97.5 71 17 128/60 (82) 98 Room Air I&O- Last 24 Hours up to 6 AM 04/11/21 06:00 Intake Total 1980 ml Balance 1980 ml Laboratory Data Labs 24H Laboratory Tests 2 04/10/21 16:21: Bedside Glucose (Misc Panel) 180H 04/10/21 20:25: Bedside Glucose (Misc Panel) 142H 04/11/21 06:48: Bedside Glucose (Misc Panel) 108 04/11/21 11:24: Bedside Glucose (Misc Panel) 188H FSBS Laboratory Tests Test 04/10/21 16:21 04/10/21 20:25 04/11/21 06:48 04/11/21 11:24 Range/Units Bedside Glucose (Misc Panel) 180 142 108 188 83-110 MG/DL Discharge Medications Scheduled Alpelisib (Piqray) 1 Each Tablet, 1 TAB PO DAILY, (Reported) Cyanocobalamin (Vitamin B-12) (Vitamin B-12) 1,000 Mcg Capsule, 1,000 MCG PO DAILY, (Reported) Donepezil HCl (Donepezil HCl) 10 Mg Tablet, 10 MG PO DAILY, (Reported) Insulin Glargine (Lantus) 100 Unit/1 Ml Vial, 15 UNITS SC QHS, (Reported) Insulin Lispro (Insulin Lispro Kwikpen U-100) 100 Unit/1 Ml Insuln.pen, 1 DOSE SC ACHS, (Reported) PER SLIDING SCALE Loratadine (Loratadine) 10 Mg Tablet, 10 MG PO DAILY, (Reported) Memantine HCl (Memantine HCl) 10 Mg Tab, 10 MG PO BID, (Reported) Quetiapine Fumarate (Quetiapine Fumarate) 25 Mg Tablet, 25 MG PO BID, (Reported) Venlafaxine HCl (Venlafaxine HCl) 75 Mg Tablet, 75 MG PO DAILY, (Reported) Allergies Coded Allergies: TAPE (Verified Allergy, Unknown, 11/02/17) SHELLY QUIROZ DO Apr 11, 2021 13:11
[2021-04-11 20:07] LABS: Methylmalonic Acid 239 nmol/L (0-378)
[2021-04-11] MEDS: LEVEMIR (INSULIN DETEMIR) 1 UNITS/0.01ML SC SCH (20:21)
[2021-04-12 06:38] VITALS: BP 137/79
[2021-04-12] MEDS: LORATADINE 10 MG TAB PO SCH (08:15)
[2021-04-12] MEDS: VENLAFAXINE 37.5 MG TAB PO SCH (08:15)
[2021-04-12] MEDS: HumaLOG INSULIN (NovoLOG) PER UNIT SC SCH (08:15)
[2021-04-12] MEDS: MEMANTINE 5MG TABLET (NAMENDA) PO SCH (08:15)
[2021-04-12] MEDS: QUEtiapine FUMARATE 25 MG TAB PO SCH (08:15)
[2021-04-12] MEDS: DONEPEZIL 5 MG TAB PO SCH (08:15)
[2021-04-12] MEDS: DOCUSATE SODIUM 100MG CAPSULE PO SCH (08:16)
[2021-04-12] MEDS ORDERED: OLANZapine ORAL DISINTEGRATING TAB 5MG PO PRN (08:30)
--- NOTE | 2021-04-12 22:15 | IPNPDOC ---
Subjective Date Seen The patient was seen on 04/12/21. Subjective Chief Complaint/HPI Mrs. Rivera is a 71 year old female with dementia, DM, and CKD stage III who is here for progressively worsening dementia. She was seen this morning prior to discharge to [place], [place]. This morning, she feels well. She denies any chest pain, dyspnea, abdominal pain, or dysuria. She was asking for help because she did not want to stay here and wanted to go home. Patient will be discharged to the [facility] in [place], [place]. Please see discharge summary on 04/11/21 for details of patient's hospitalization. Objective Physical Examination General Exam: Positive: Alert, Cooperative Eye Exam: Negative: Sclera icteric Neck Exam: Positive: Supple Chest Exam: Positive: Clear to auscultation Heart Exam: Positive: Rate Normal, Regular Rhythm Abdomen Exam: Positive: Normal bowel sounds, Soft; Negative: Tenderness Neuro Exam: Positive: Normal Speech Psych Exam: Positive: Mood NL; Negative: Memory Intact Assessment /Plan Assessment Mrs. Rivera is a 71 year old female with dementia, DM, and CKD stage III who is here for progressively worsening dementia. Her cannot care for her at home. Patient will be discharge to [facility] in [place], [place] Plan/VTE VTE Prophylaxis Ordered?: Yes Plan 1. Progressive dementia -Unit Secretary unable to care for patient at home -Patient to be discharged to the [facility] in [place], [place] 2. Diabetes mellitus -Continue with basal bolus insulin 3. Depression -Continue Effexor 4. CKD stage III -Creatinine at baseline 5. DVT ppx -SCD and TEDs Disposition: Discharge to the [facility] in [place], [place] on 04/12/21. Please see discharge summary on 04/11/21 for details of hospitalization. VS, I&O, 24H, Fishbone Vital Signs/I&O Vital Signs Date Time Temp Pulse Resp B/P (MAP) Pulse Ox O2 Delivery O2 Flow Rate FiO2 04/12/21 06:38 98.5 77 18 137/79 (98) 99 Room Air I&O- Last 24 Hours up to 6 AM 04/12/21 06:00 Intake Total 1140 ml Balance 1140 ml Laboratory Data 24H LABS Laboratory Tests 2 04/12/21 06:45: Bedside Glucose (Misc Panel) 265H MADHAVI ZAYAS DO Apr 12, 2021 22:15
== END 2021-04-12 08:55 | DRG 884 ==
LOC: M ED 20:45 → M ED INP 20:46 → ENRESERV 04-08 04:36 → M MS5PR 04-08 09:25 → OBSVTOIN 04-08 09:27
PROVIDERS: ADMIT Internal Medicine; ATTEND Internal Medicine
DX: F03.91 Unspecified dementia, unspecified severity, with behavioral disturbance (principal); N18.30 Chronic kidney disease, stage 3 unspecified; F32.9 Major depressive disorder, single episode, unspecified; E11.9 Type 2 diabetes mellitus without complications; E78.5 Hyperlipidemia, unspecified; G47.33 Obstructive sleep apnea (adult) (pediatric); Z85.3 Personal history of malignant neoplasm of breast; Z79.899 Other long term (current) drug therapy; Z79.4 Long term (current) use of insulin